=== PATIENT | female | born 1930 | race Caucasian/White ===

== ENCOUNTER → 2016-08-08 | Outpatient (CLI) | payer MEDICARE ==
[~2016-08-08] MED LIST: *MAMMOGRAM; ACIPHEX PO; ALLEGRA180 PO; BEXTRA PO; CIPRO500 PO; DYAZIDE PO; ISOVUE-M 300 61% 15ML VIAL (Q9967) As Ordered ONE; LIDOCAINE 1% SDV INJ 30 ML VIAL As Ordered ONE; LIDODERM TOPICAL; MIACALCIN NOSTRIL; MOBIC15 PO; NEURONTIN3 PO; NEXIUM40 PO; PRILOSEC40 PO; RANITIDINE PO; ROBAXIN500 PO; ULTRAM50 PO; VICO5TAB; VIOXX125 PO; VIOXX25 PO; ZADITOR TOPICAL; ZITHROM500 PO; [UNRECOGNIZED DRUG - OTHER] NASAL; methylPREDNISolone SUSP 40 MG/ML (DEPO-medrol) VIAL (J1030) As Ordered ONE
--- NOTE | 2016-08-09 08:52 | REP ---
PARTIAL LUMBAR SPINE SERIES: SINGLE VIEW. History: Lumbar epidural steroid injection for pain. 11 seconds of fluoroscopy time is reported. Findings: A single fluoroscopically obtained intraprocedural spot radiograph of the lumbar spine documents needle position and contrast injection associated with epidural injection procedure. Signed by Jerman Monroe MD 08/09/2016 10:07 A
--- NOTE | 2016-08-13 01:59 | ECWPNPC ---
PATIENT NAME: DANIEL SUH : 1930 GENDER: FEMALE VISIT DATE: 08/08/2016 DISCHARGE DATE: 08/08/16 1654 VISIT LOCKED DATE TIME: PHYSICIAN: BECKA RAMOS PHYSICIAN PAGER NO: [phone] RESOURCE: BECKA RAMOS REASON FOR APPOINTMENT 1. LESB HISTORY OF PRESENT ILLNESS HISTORY OF PRESENT ILLNESS: PAIN THE PATIENT DESCRIBES THE PAIN... FALL RISK SCREENING: SCREENING :NO FALLS IN THE PAST YEAR CURRENT MEDICATIONS TAKING FISH OIL 1000 MG TABLET 1 TAB(S) P.O. DAILY, NOTES: 08/07/161929 TAKING OCCUVITE ------ TABLET 2 TABS ORAL DAILY, NOTES: 08/07/161929 TAKING AMLODIPINE BESYLATE 2.5 MG TABLET 1 TABLET ORALLY ONCE A DAY, NOTES: 08/08/16 07 TAKING ALEVE 220 MG TABLET 1-2 TABLET NEEDED ORALLY BID, PRN, NOTES: 08/05/16 TAKING ZANTAC 150 MG TABLET 1 TAB ORALLY NEEDED, NOTES: > 2 WEEKS TAKING DYAZIDE 37.5-25 MG TABLET 1 TAB(S) ORALLY DAILY, NOTES: 08/08/16 07 TAKING EYE DROPS 0.012-0.2 % SOLUTION OPHTHALMIC , NOTES: 08/07/162199 NOT-TAKING NORTRIPTYLINE HCL 10 MG CAPSULE 1 CAPSULE ORALLY ONCE A DAY NOT-TAKING CIPROFLOXACIN-DEXAMETHASONE 0.3-0.1 % SUSPENSION 4 DROPS INTO AFFECTED EAR OTIC TWICE A DAY MEDICATION LIST REVIEWED AND RECONCILED WITH THE PATIENT PAST MEDICAL HISTORY OA HTN OSTEOPOROSIS H.H. GERD DDD LS-SPINE DIVERTICULITIS MACULAR DEGENERATION COLONOSCOPY 03/03/2014 GENERALIZED OSTEOARTHROSIS, INVOLVING MULTIPLE SITES ALLERGIC RHINITIS SPINAL STENOIS TORN ROTATOR CUFF LEFT SHOULDER ALLERGIES LISINOPRIL: ANGIOEDEMA: ALLERGY ASPIR-81: EYE SWELLING AND ITCHING: ALLERGY TOMATO: ABDOMINAL DISCOMFORT: SIDE EFFECTS SOCIAL HISTORY GENERAL: TOBACCO USE ARE YOU A:NONSMOKER LEARNING BARRIERS / SPECIAL NEEDS ORIENTED TO PLAN OF CARE: PATIENT, PAIN MANAGEMENT PATIENT, ORIENTED TO PLAN OF CARE: PATIENT, PAIN MANAGEMENT PATIENT. NEW PATIENT PAIN DIARY TODAY'S VISITNOTES FROM 0-10, WHAT LEVEL IS YOUR PAIN TODAY?0 PAIN CLINIC PFS, CLERGY, PUBLIC HEALTH REFERRALS PFS REFERRAL NEEDED?NO CLERGY REFERRAL NEEDED?NO PUBLIC HEALTH REFERRAL NEEDED?NO WAS THE PROVIDER NOTIFIED OF ANY PERTINENT INFO?NO PFS REFERRAL NEEDED?NO CLERGY REFERRAL NEEDED?NO PUBLIC HEALTH REFERRAL NEEDED?NO WAS THE PROVIDER NOTIFIED OF ANY PERTINENT INFO?NO REVIEW OF SYSTEMS CONSTITUTIONAL: ANY CHANGE IN YOUR MEDICAL CONDITION? NO . CHILLS NO . FEVER NO . INFECTION: DO YOU HAVE NEW INFECTIONS? NO . DO YOU HAVE HISTORY OF MRSA? NO . MUSCULOSKELETAL: ANY NEW PATTERNS OF PAIN OR NUMBNESS? NO . GASTROENTEROLOGY: ANY NEW CHANGE IN BOWEL CONTROL? NO . GENITOURINARY: ANY NEW CHANGE IN BLADDER CONTROL? NO . IS THERE A CHANCE YOU COULD BE ? NO . HEMATOLOGY/LYMPH: DO YOU TAKE ANY BLOOD THINNERS? (FOR EXAMPLE- COUMADIN, PLAVIX, AGGRENOX, PLATEL, PRADAXA, OR XARELTO) NO . WHEN WAS YOUR LAST DOSE? DATE: TIME: . NEUROLOGY: HAVE YOU FALLEN IN THE PAST 6 MONTHS? NO . ANY NEW EXTREMITY NUMBNESS OR WEAKNESS? NO . CARDIOLOGY: DO YOU HAVE A PACEMAKER OR DEFIBRILLATOR? NO . RESPIRATORY: HAVE YOU BEEN SICK IN THE PAST WEEK? NO . FEVER NO . FLU LIKE SYMPTOMS? NO . COUGH NO . INTEGUMENTARY: DO YOU HAVE ANY RASHES OR OPEN SORES? NO . ALLERGIC/IMMUNO: ARE YOU ALLERGIC TO SHELLFISH OR IV DYE? NO . ANY NEW ALLERGIES? NO . PSYCHIATRIC: DO YOU HAVE THOUGHTS OF HURTING YOURSELF OR SOMEONE ELSE? NO . ARE YOU ABUSED, NEGLECTED, OR IN AN UNSAFE ENVIRONMENT? NO . ENDOCRINOLOGY: ARE YOU DIABETIC? NO . OTHER: DO YOU NEED ANY PRESCRIPTIONS? NO . IF YES, PLEASE LIST: ____ . ANY NEW PROBLEMS WITH YOUR MEDICATIONS? NO . WHEN DID YOU LAST EAT? ____08/08/16 0630 . WHEN DID YOU LAST DRINK? ____08/08/16 0700 . WHAT DID YOU LAST DRINK? ____WATER . NAME OF PERSON DRIVING YOU HOME? ____PATRICIA . DO YOU HAVE ANY OTHER QUESTIONS OR CONCERNS NO . REVIEWED BY: PROVIDER: . VITAL SIGNS WT 180 LBS, HT 61 IN, BMI 34.01 INDEX, BP 120/80 MM HG, HR 76 /MIN, RR 18 /MIN, TEMP 96.0 F, OXYGEN SAT % 96, NA INITIALS TL 1453, REVIEWED BY: LAS. ASSESSMENTS INTERVERTEBRAL DISC DISORDERS WITH RADICULOPATHY, LUMBAR REGION - M51.16 (PRIMARY) PROCEDURES PRE PROCEDURE DIAGNOSIS LUMBAR DISC DISORDER WITH RADICULOPATHY POST PROCEDURE DIAGNOSIS LUMBAR DISC DISORDER WITH RADICULOPATHY PROCEDURE LUMBAR EPIDURAL STEROID INJECTION UNDER FLUOROSCOPIC GUIDANCE SURGEON DR. BECKA RAMOS SMOKING TOBACCO PACKING MACHINE HAND NONE ANESTHESIA LOCAL PRE PROCEDURE NOTE THE PATIENT HAS A HISTORY OF CHRONIC LOW BACK PAIN. I EVALUATE THE PATIENT AND REVIEWED THE CHART. I WENT OVER THE RISKS, ALTERNATIVES, AND BENEFITS ASSOCIATED WITH THIS PROCEDURE. THE PATIENT WOULD LIKE TO PROCEED AND GIVE CONSENT TO PERFORMED THE PROCEDURE. THE PATIENT DENIES UNEXPLAINABLE WEIGHT LOSS, FEVER, CHILLS, OR NEW CHANGES IN URINARY OR BOWEL CONTROL DESCRIPTION OF PROCEDURE THE PATIENT WAS BROUGHT TO THE PROCEDURE ROOM AND PLACED IN THE PRONE POSITION. THE LUMBOSACRAL AREA WAS CLEANED WITH BETADINE SOLUTION AND DRAPED ASEPTICALLY. THE PROCEDURE WAS DONE UNDER STERILE CONDITIONS. I CHECKED LATERALITY AND THE LEVEL WHERE THE PROCEDURE WAS GOING TO BE PERFORMED WITH THE PATIENT AND THE SUPPORTING STAFF AT THE MOMENT OF THE TIME OUT IN THE PROCEDURE ROOM. UNDER FLUOROSCOPIC GUIDANCE, THE TARGET POINT WAS SELECTED AT THE INTERLAMINAR LEVEL OF L2-L3. LIDOCAINE WAS USED TO NUMB THE SKIN AND THE SUBCUTANEOUS TISSUE BELOW IT. EPIDURAL TUOHY NEEDLE, 17-GAUGE, WAS ADVANCED UNDER FLUOROSCOPIC GUIDANCE AND FOLLOWING PATIENT FEEDBACK UNTIL THE EPIDURAL SPACE WAS REACHED, 7 CM DEEP INTO THE SKIN BY THE LOSS OF RESISTANCE TECHNIQUE. ISOVUE M DYE 30%, 0.25 ML, WAS INJECTED SHOWING ADEQUATE SPREAD OF THE DYE. THEN, A SOLUTION OF 3 ML OF NORMAL SALINE WITH DEPO-MEDROL 60 MG WAS INJECTED SLOWLY FOLLOWING PATIENT FEEDBACK. THERE WAS NO EVIDENCE OF BLOOD, PARESTHESIA OR CEREBROSPINAL FLUID DURING THE PROCEDURE. THE PATIENT WAS SENT TO THE RECOVERY ROOM. THE PATIENT WAS MOVING THE EXTREMITIES AND DOING WELL. THERE WAS NO COMPLICATION DURING THE PROCEDURE. FLUOROSCOPY TIME WAS 11 SECONDS POST PROCEDURE NOTE THE PATIENT WILL BE SEEN IN A FOLLOW UP IN THE NEXT FEW WEEKS. INSTRUCTIONS WERE GIVEN, QUESTIONS WERE ANSWERED, AND THE PATIENT EXPRESSED UNDERSTANDING AND AGREES WITH THE PLAN. I, MARIANA GAO, DOCUMENTED THE ABOVE INFORMATION ACTING A SCRIBE FOR DR. RAMOS. I, DR. RAMOS, HAVE REVIEWED THE ABOVE DOCUMENT, SCRIBED BY MARIANA GAO, AND I VERIFY THAT IT IS ACCURATE DIAGNOSTIC IMAGING [facility] FLUORO GUIDE SPINE INJECTION (PAIN)[id number] PROCEDURE CODES 70422 LUMBAR/SACRAL W/ IMAGING 6045F RADXPS IN END [id number] PXD FOLLOW UP 3 WEEKS ELECTRONICALLY SIGNED BY BECKA RAMOS MD ON 08/12/2016 AT 04:57 PM EST DISCLAIMER : THIS IS A VISIT SUMMARY EXTRACTED FROM THE [employer] CHART. IT IS NOT A COPY OF THE [employer] PROGRESS NOTE. MTDD
== END ==
LOC: M PAIN 14:20
PROVIDERS: ATTEND Anesthesiology
DX: G89.29 Other chronic pain (principal); M51.16 Intervertebral disc disorders with radiculopathy, lumbar region; I10 Essential (primary) hypertension; M81.0 Age-related osteoporosis without current pathological fracture; K21.9 Gastro-esophageal reflux disease without esophagitis; H35.30 Unspecified macular degeneration; M15.0 Primary generalized (osteo)arthritis; G47.30 Sleep apnea, unspecified; J30.89 Other allergic rhinitis; M48.00 Spinal stenosis, site unspecified; Z88.8 Allergy status to other drugs, medicaments and biological substances; Z91.018 Allergy to other foods; Z79.1 Long term (current) use of non-steroidal anti-inflammatories (NSAID); Z79.899 Other long term (current) drug therapy
CPT/HCPCS: 62323; J1030; Q9967

== ENCOUNTER → 2016-08-26 | Outpatient (CLI) | payer MEDICARE ==
[~2016-08-26] MED LIST changes: -ISOVUE-M 300 61% 15ML VIAL (Q9967) As Ordered ONE; -LIDOCAINE 1% SDV INJ 30 ML VIAL As Ordered ONE; -methylPREDNISolone SUSP 40 MG/ML (DEPO-medrol) VIAL (J1030) As Ordered ONE
--- NOTE | 2016-09-13 01:48 | ECWPNPC ---
PATIENT NAME: DANIEL SUH : 1930 GENDER: FEMALE VISIT DATE: 08/26/2016 DISCHARGE DATE: 08/26/16 1600 VISIT LOCKED DATE TIME: PHYSICIAN: STEPHAN ROCK PHYSICIAN PAGER NO: [phone] RESOURCE: STEPHAN ROCK REASON FOR APPOINTMENT 1. LOW BACK HISTORY OF PRESENT ILLNESS HISTORY OF PRESENT ILLNESS: HERE FOR POST PROCEDURE F/U AFTER NUMBER #2 LESI.REPORTS NO IMPROVEMENT WITH EITHER.PAIN IS WORSE IN RIGHT LEG AND ANTERIOR HOPKINS.MRI L/S SPINE SHOWING SEVERE SPINAL STENOSIS L4/5.DISCUSSED POTENTIAL RISK AND BENEFITS OF RIGHT LUMBAR TRANSFORAMINAL.PAIN IS AGGREVATED BY WALKING.RATING PAIN VAS 10/10. FALL RISK SCREENING: SCREENING :NO FALLS IN THE PAST YEAR CURRENT MEDICATIONS TAKING FISH OIL 1000 MG TABLET 1 TAB(S) P.O. DAILY, NOTES: 08/07/161929 TAKING OCCUVITE ------ TABLET 2 TABS ORAL DAILY, NOTES: 08/07/161929 TAKING AMLODIPINE BESYLATE 2.5 MG TABLET 1 TABLET ORALLY ONCE A DAY, NOTES: 08/08/16 07 TAKING ALEVE 220 MG TABLET 1-2 TABLET NEEDED ORALLY BID, PRN, NOTES: 08/05/16 TAKING ZANTAC 150 MG TABLET 1 TAB ORALLY NEEDED, NOTES: > 2 WEEKS TAKING DYAZIDE 37.5-25 MG TABLET 1 TAB(S) ORALLY DAILY, NOTES: 08/08/16 07 TAKING SYSTANE 0.4-0.3 % SOLUTION 2 DROPS OPHTHALMIC OU BID NOT-TAKING NORTRIPTYLINE HCL 10 MG CAPSULE 1 CAPSULE ORALLY ONCE A DAY NOT-TAKING CIPROFLOXACIN-DEXAMETHASONE 0.3-0.1 % SUSPENSION 4 DROPS INTO AFFECTED EAR OTIC TWICE A DAY DISCONTINUED EYE DROPS 0.012-0.2 % SOLUTION OPHTHALMIC , NOTES: 08/07/162199 MEDICATION LIST REVIEWED AND RECONCILED WITH THE PATIENT PAST MEDICAL HISTORY OA HTN OSTEOPOROSIS H.H. GERD DDD LS-SPINE DIVERTICULITIS MACULAR DEGENERATION COLONOSCOPY 03/03/2014 GENERALIZED OSTEOARTHROSIS, INVOLVING MULTIPLE SITES ALLERGIC RHINITIS SPINAL STENOIS TORN ROTATOR CUFF LEFT SHOULDER ALLERGIES LISINOPRIL: ANGIOEDEMA: ALLERGY ASPIR-81: EYE SWELLING AND ITCHING: ALLERGY TOMATO: ABDOMINAL DISCOMFORT: SIDE EFFECTS SOCIAL HISTORY GENERAL: TOBACCO USE ARE YOU A:NONSMOKER LEARNING BARRIERS / SPECIAL NEEDS ORIENTED TO PLAN OF CARE: PATIENT, PAIN MANAGEMENT PATIENT, ORIENTED TO PLAN OF CARE: PATIENT, PAIN MANAGEMENT PATIENT. NEW PATIENT PAIN DIARY TODAY'S VISITNOTES FROM 0-10, WHAT LEVEL IS YOUR PAIN TODAY?0 PAIN CLINIC PFS, CLERGY, PUBLIC HEALTH REFERRALS PFS REFERRAL NEEDED?NO CLERGY REFERRAL NEEDED?NO PUBLIC HEALTH REFERRAL NEEDED?NO WAS THE PROVIDER NOTIFIED OF ANY PERTINENT INFO?NO PFS REFERRAL NEEDED?NO CLERGY REFERRAL NEEDED?NO PUBLIC HEALTH REFERRAL NEEDED?NO WAS THE PROVIDER NOTIFIED OF ANY PERTINENT INFO?NO REVIEW OF SYSTEMS CONSTITUTIONAL: ANY CHANGE IN YOUR MEDICAL CONDITION? NO . RECENT ILLNESS DENIES . CHILLS NO . FEVER NO . WEIGHT LOSS DENIES . INFECTION: DO YOU HAVE NEW INFECTIONS? NO . DO YOU HAVE HISTORY OF MRSA? NO . MUSCULOSKELETAL: ANY NEW PATTERNS OF PAIN OR NUMBNESS? NO . GASTROENTEROLOGY: ANY NEW CHANGE IN BOWEL CONTROL? NO . GENITOURINARY: ANY NEW CHANGE IN BLADDER CONTROL? NO . IS THERE A CHANCE YOU COULD BE ? NO . HEMATOLOGY/LYMPH: DO YOU TAKE ANY BLOOD THINNERS? (FOR EXAMPLE- COUMADIN, PLAVIX, AGGRENOX, PLATEL, PRADAXA, OR XARELTO) NO . WHEN WAS YOUR LAST DOSE? DATE: TIME: . NEUROLOGY: HAVE YOU FALLEN IN THE PAST 6 MONTHS? NO . ANY NEW EXTREMITY NUMBNESS OR WEAKNESS? NO . CARDIOLOGY: DO YOU HAVE A PACEMAKER OR DEFIBRILLATOR? NO . CHEST PAIN DENIES . SHORTNESS OF BREATH DENIES . RESPIRATORY: HAVE YOU BEEN SICK IN THE PAST WEEK? NO . FEVER NO . FLU LIKE SYMPTOMS? NO . COUGH NO, DENIES . SHORTNESS OF BREATH DENIES . INTEGUMENTARY: DO YOU HAVE ANY RASHES OR OPEN SORES? NO . ALLERGIC/IMMUNO: ARE YOU ALLERGIC TO SHELLFISH OR IV DYE? NO . ANY NEW ALLERGIES? NO . PSYCHIATRIC: DO YOU HAVE THOUGHTS OF HURTING YOURSELF OR SOMEONE ELSE? NO . ARE YOU ABUSED, NEGLECTED, OR IN AN UNSAFE ENVIRONMENT? NO . ENDOCRINOLOGY: ARE YOU DIABETIC? NO . OTHER: DO YOU NEED ANY PRESCRIPTIONS? NO . IF YES, PLEASE LIST: ____ . ANY NEW PROBLEMS WITH YOUR MEDICATIONS? NO . WHEN DID YOU LAST EAT? ____ . WHEN DID YOU LAST DRINK? ____ . WHAT DID YOU LAST DRINK? ____ . NAME OF PERSON DRIVING YOU HOME? ____ . DO YOU HAVE ANY OTHER QUESTIONS OR CONCERNS YES, NO RELIEF FROM LESB DONE 08/08/16 . REVIEWED BY: PROVIDER: STEPHAN BERGER . VITAL SIGNS WT 180 LBS, HT 61 IN, BMI 34.01 INDEX, BP 153/73 MM HG, HR 79 /MIN, RR 16 /MIN, TEMP 96.7 F, OXYGEN SAT % 90%, NA INITIALS SC 14:41, REVIEWED BY: AD. EXAMINATION GENERAL EXAMINATION: LUNGS:LUNG SOUNDS ARE CLEAR. HEART:HEART RATE REGULAR. MUSCULOSKELETAL:*, MUSCLE STRENGTH TESTING 5/5 BILATERAL, PALPATION: POSITIVE FOR PAIN OVER L/S SPINE. POSITIVE FOR PAIN OVER L/S PARSPINALS. DIAGNOSTIC:MRI L/S SPINE -04-15-2015-REVIEWED.. ASSESSMENTS INTERVERTEBRAL DISC DISORDERS WITH RADICULOPATHY, LUMBAR REGION - M51.16 (PRIMARY) TREATMENT INTERVERTEBRAL DISC DISORDERS WITH RADICULOPATHY, LUMBAR REGION NOTES: WHAT IS LUMBAR EPIDURAL INJECTION? MATERIAL WAS PRINTED,LUMBAR EPIDURAL INJECTION: YOUR PROCEDURE MATERIAL WAS PRINTED. OTHERS TRANSFORAMINAL LUMB NOTES: OPTION FOR EPIDURAL INJECTIONS WERE DISCUSSED WITH THE PATIENT. FDA CONCERNS AND WARNING WERE REVIEWED INCLUDING THE RISK OF BLEEDING, RISK OF INFECTION, RISK OF INCREASED PAIN OR NEURALGIA, AND RISK OF PARALYSIS. PATIENT'S QUESTIONS WERE ANSWERED AND HE/SHE WISHES TO MOVE FORWARD WITH EPIDURAL INJECTION. PROCEDURE CODES FA211 ESTABILISHED PATIENT [facility] FACILITY CHARGE G8730 PAIN ASSESS POS TOOL F/U PLAN DOC G8427 DOC MEDS VERIFIED W/PT OR RE FOLLOW UP 2WK POST (REASON: RIGHT LUMBAR TRANSFORAMINAL) ELECTRONICALLY SIGNED BY CELINE HOFFMAN ON 09/12/2016 AT 03:57 PM EST DISCLAIMER : THIS IS A VISIT SUMMARY EXTRACTED FROM THE [employer] CHART. IT IS NOT A COPY OF THE [employer] PROGRESS NOTE. KRISTOFER
== END ==
LOC: M PAIN 14:40
PROVIDERS: ATTEND Nurse Practitioner Family
DX: Z09 Encounter for follow-up examination after completed treatment for conditions other than malignant neoplasm (principal); G89.29 Other chronic pain; M51.16 Intervertebral disc disorders with radiculopathy, lumbar region; M51.36 Other intervertebral disc degeneration, lumbar region; M15.0 Primary generalized (osteo)arthritis; H35.30 Unspecified macular degeneration; I10 Essential (primary) hypertension; M85.80 Other specified disorders of bone density and structure, unspecified site; K21.9 Gastro-esophageal reflux disease without esophagitis; M48.00 Spinal stenosis, site unspecified; G47.30 Sleep apnea, unspecified; J30.89 Other allergic rhinitis; Z88.6 Allergy status to analgesic agent; Z91.018 Allergy to other foods; Z88.8 Allergy status to other drugs, medicaments and biological substances; Z79.1 Long term (current) use of non-steroidal anti-inflammatories (NSAID); Z79.899 Other long term (current) drug therapy

== ENCOUNTER → 2016-10-05 | Outpatient (CLI) | payer MEDICARE ==
--- NOTE | 2016-10-12 01:58 | ECWPNPC ---
PATIENT NAME: DANIEL SUH : 1930 GENDER: FEMALE VISIT DATE: 10/05/2016 DISCHARGE DATE: 10/05/16 1223 VISIT LOCKED DATE TIME: PHYSICIAN: BECKA RAMOS PHYSICIAN PAGER NO: [phone] RESOURCE: BECKA RAMOS REASON FOR APPOINTMENT 1. LOW BACK PAIN HISTORY OF PRESENT ILLNESS HISTORY OF PRESENT ILLNESS: PAIN THE PATIENT DESCRIBES THE PAIN... 86 YEAR OLD FEMALE PATIENT WITH HISTORY OF CHRONIC LOW BACK PAIN. PATIENT DESCRIBES THE PAIN ACHING, BURNING, TENDER, THROBBING, AND SORE WITH THE PAIN COMING AND GOING AND A PAIN SCORE OF 10/10. PATIENT RECEIVED A LUMBAR EPIDURAL ON 09/14/16 AND STATES THAT SHE DID NOT RECEIVE ANY RELIEF FROM THE INJECTION AT ALL. PATIENT IS CURRENTLY ONLY USING ALEVE TO AID IN PAIN RELIEF. MRS. SUH REPORTS PAIN INCREASING WITH ANY TYPE OF ACTIVITY INCLUDING SITTING, STANDING, WALKING, AND OVERWORKING HER BACK. PATIENT STATES THAT RESTING AND HEAT HELPS TO AID IN PAIN RELIEF. PATIENT DENIES UNEXPLAINABLE WEIGHT LOSS, FEVER, CHILLS, NEW CHANGES ON HER URINARY OR BOWEL CONTROL. FALL RISK SCREENING: SCREENING :NO FALLS IN THE PAST YEAR CURRENT MEDICATIONS TAKING FISH OIL 1000 MG TABLET 1 TAB(S) P.O. DAILY, NOTES: 1230 09-13-16 TAKING OCCUVITE ------ TABLET 2 TABS ORAL DAILY, NOTES: 20990 TAKING AMLODIPINE BESYLATE 2.5 MG TABLET 1 TABLET ORALLY ONCE A DAY, NOTES: 09-13-16 1230 TAKING ALEVE 220 MG TABLET 1-2 TABLET NEEDED ORALLY BID, PRN, NOTES: 2099 TAKING ZANTAC 150 MG TABLET 1 TAB ORALLY NEEDED, NOTES: 09-13-162099 TAKING DYAZIDE 37.5-25 MG TABLET 1 TAB(S) ORALLY DAILY, NOTES: 09-13-16 2100 TAKING SYSTANE 0.4-0.3 % SOLUTION 2 DROPS OPHTHALMIC OU BID, NOTES: 09-14-16 0600 TAKING CENTRUM SILVER - TABLET ORALLY TAKING AMOXICILLIN 875 MG TABLET 1 TABLET ORALLY EVERY 12 HRS NOT-TAKING NORTRIPTYLINE HCL 10 MG CAPSULE 1 CAPSULE ORALLY ONCE A DAY NOT-TAKING CIPROFLOXACIN-DEXAMETHASONE 0.3-0.1 % SUSPENSION 4 DROPS INTO AFFECTED EAR OTIC TWICE A DAY MEDICATION LIST REVIEWED AND RECONCILED WITH THE PATIENT PAST MEDICAL HISTORY OA HTN OSTEOPOROSIS H.H. GERD DDD LS-SPINE DIVERTICULITIS MACULAR DEGENERATION COLONOSCOPY 03/03/2014 GENERALIZED OSTEOARTHROSIS, INVOLVING MULTIPLE SITES ALLERGIC RHINITIS SPINAL STENOIS TORN ROTATOR CUFF LEFT SHOULDER ALLERGIES LISINOPRIL: ANGIOEDEMA: ALLERGY ASPIR-81: EYE SWELLING AND ITCHING: ALLERGY TOMATO: ABDOMINAL DISCOMFORT: SIDE EFFECTS SURGICAL HISTORY NO SURGICAL HISTORY DOCUMENTED. FAMILY HISTORY NO FAMILY HISTORY DOCUMENTED. SOCIAL HISTORY GENERAL: TOBACCO USE ARE YOU A:NONSMOKER LEARNING BARRIERS / SPECIAL NEEDS ORIENTED TO PLAN OF CARE: PATIENT, PAIN MANAGEMENT PATIENT, ORIENTED TO PLAN OF CARE: PATIENT, PAIN MANAGEMENT PATIENT. NEW PATIENT PAIN DIARY TODAY'S VISITNOTES FROM 0-10, WHAT LEVEL IS YOUR PAIN TODAY?0 PAIN CLINIC PFS, CLERGY, PUBLIC HEALTH REFERRALS PFS REFERRAL NEEDED?NO CLERGY REFERRAL NEEDED?NO PUBLIC HEALTH REFERRAL NEEDED?NO WAS THE PROVIDER NOTIFIED OF ANY PERTINENT INFO?NO PFS REFERRAL NEEDED?NO CLERGY REFERRAL NEEDED?NO PUBLIC HEALTH REFERRAL NEEDED?NO WAS THE PROVIDER NOTIFIED OF ANY PERTINENT INFO?NO HOSPITALIZATION/MAJOR DIAGNOSTIC PROCEDURE SURGERIES REVIEW OF SYSTEMS CONSTITUTIONAL: ANY CHANGE IN YOUR MEDICAL CONDITION? YES, HAS HAD A SINUS INFECTION . CHILLS NO . FEVER NO . INFECTION: DO YOU HAVE NEW INFECTIONS? NO . DO YOU HAVE HISTORY OF MRSA? NO . MUSCULOSKELETAL: ANY NEW PATTERNS OF PAIN OR NUMBNESS? NO . GASTROENTEROLOGY: ANY NEW CHANGE IN BOWEL CONTROL? NO . GENITOURINARY: ANY NEW CHANGE IN BLADDER CONTROL? NO . IS THERE A CHANCE YOU COULD BE ? NO . HEMATOLOGY/LYMPH: DO YOU TAKE ANY BLOOD THINNERS? (FOR EXAMPLE- COUMADIN, PLAVIX, AGGRENOX, PLATEL, PRADAXA, OR XARELTO) NO . WHEN WAS YOUR LAST DOSE? DATE: TIME: . NEUROLOGY: HAVE YOU FALLEN IN THE PAST 6 MONTHS? NO . ANY NEW EXTREMITY NUMBNESS OR WEAKNESS? NO . CARDIOLOGY: DO YOU HAVE A PACEMAKER OR DEFIBRILLATOR? NO . RESPIRATORY: HAVE YOU BEEN SICK IN THE PAST WEEK? NO . FEVER NO . FLU LIKE SYMPTOMS? NO . COUGH NO . INTEGUMENTARY: DO YOU HAVE ANY RASHES OR OPEN SORES? NO . ALLERGIC/IMMUNO: ARE YOU ALLERGIC TO SHELLFISH OR IV DYE? NO . ANY NEW ALLERGIES? NO . PSYCHIATRIC: DO YOU HAVE THOUGHTS OF HURTING YOURSELF OR SOMEONE ELSE? NO . ARE YOU ABUSED, NEGLECTED, OR IN AN UNSAFE ENVIRONMENT? NO . ENDOCRINOLOGY: ARE YOU DIABETIC? NO . OTHER: DO YOU NEED ANY PRESCRIPTIONS? NO . IF YES, PLEASE LIST: ____ . ANY NEW PROBLEMS WITH YOUR MEDICATIONS? NO . WHEN DID YOU LAST EAT? ____ . WHEN DID YOU LAST DRINK? ____ . WHAT DID YOU LAST DRINK? ____ . NAME OF PERSON DRIVING YOU HOME? ____ . DO YOU HAVE ANY OTHER QUESTIONS OR CONCERNS NO . REVIEWED BY: PROVIDER: BECKA RAMOS MD . VITAL SIGNS WT 180 LBS, HT 61 IN, BMI 34.01 INDEX, BP 130/67 MM HG, HR 77 /MIN, RR 16 /MIN, TEMP 97.4 F, OXYGEN SAT % 95, NA INITIALS TL 1105, REVIEWED BY: VD. EXAMINATION : PATIENT IS ALERT O X 3 AND COOPERATIVE. TENDERNESS IN THE LOWER BACK AND PARASPINAL MUSCLE GROUP. RIGHT LEG IS WEAKER THEN THE LEFT AT FLEXION. PATIENT WALKS WITH A LIMP FROM THE RIGHT SIDE. MRI DONE ON 04/15/15 SHOWS STENOSIS, FACET HYPERTROPHY, AND DISC BULGES AT L1-L2 THROUGH L5-S1. 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 SUH'S PAIN MANAGEMENT CASE. AT THIS TIME THE PATIENT WILL CONTINUE USING ALEVE FOR PAIN MANAGEMENT. WE DISCUSSED MOVING FORWARD WITH A DIFFERENT INJECTION DUE TO THE LUMBAR EPIDURAL NOT GIVING THE PATIENT ANY RELIEF. WE DISCUSSED IN DETAIL THE TRANSFORAMINAL INJECTION AND AT THIS TIME THE PATIENT WOULD LIKE TO PROCEED. WE DISCUSSED THE RISKS, BENENFITS, AND ALTNERATIVES TO THE INJECTION AND THE PATIENT WOULD LIKE TO PROCEED AT THIS TIME. INSTRUCTIONS WERE GIVEN, QUESTIONS WERE ANSWERED, PATIENT REPORTS UNDERSTANDING AND AGREES WITH THE PLAN. I, MARIANA GAO, DOCUMENTED THE ABOVE INFORMATION ACTING A SCRIBE FOR DR. RAMOS. I HAVE REVIEWED THE ABOVE DOCUMENT, WRITTEN BY MARIANA SUE AND I VERIFY THAT IT IS ACCURATE. PROCEDURE CODES FA211 ESTABILISHED PATIENT [facility] FACILITY CHARGE Z1380 DOC MEDS VERIFIED W/PT OR RE O5450 PAIN ASSESS POS TOOL F/U PLAN DOC DISPOSITION & COMMUNICATION FOLLOW UP TRANSFORAMINAL AFTER APPROVAL ELECTRONICALLY SIGNED BY BECKA RAMOS MD ON 10/09/2016 AT 10:57 AM EDT DISCLAIMER : THIS IS A VISIT SUMMARY EXTRACTED FROM THE [employer] CHART. IT IS NOT A COPY OF THE [employer] PROGRESS NOTE. MTDD
== END ==
LOC: M PAIN 10:40
PROVIDERS: ATTEND Anesthesiology
DX: Z09 Encounter for follow-up examination after completed treatment for conditions other than malignant neoplasm (principal); G89.29 Other chronic pain; M51.16 Intervertebral disc disorders with radiculopathy, lumbar region; M51.17 Intervertebral disc disorders with radiculopathy, lumbosacral region; J32.9 Chronic sinusitis, unspecified; I10 Essential (primary) hypertension; M19.90 Unspecified osteoarthritis, unspecified site; M48.00 Spinal stenosis, site unspecified; J30.89 Other allergic rhinitis; H35.30 Unspecified macular degeneration; M81.0 Age-related osteoporosis without current pathological fracture; G47.30 Sleep apnea, unspecified; Z88.8 Allergy status to other drugs, medicaments and biological substances; Z88.6 Allergy status to analgesic agent; Z91.018 Allergy to other foods; Z79.1 Long term (current) use of non-steroidal anti-inflammatories (NSAID); Z79.899 Other long term (current) drug therapy; Z79.2 Long term (current) use of antibiotics

== ENCOUNTER → 2016-10-21 | Outpatient (REF) | payer MEDICARE ==
[2016-10-21 18:16] LABS: ANION GAP 6 MEQ/L (8-16); BLOOD UREA NITROGEN 20 MG/DL (7-18); CARBON DIOXIDE LEVEL 33 MEQ/L (21-32); CHLORIDE LEVEL 103 MEQ/L (98-107); CREATININE FOR GFR 0.75 MG/DL (0.55-1.02); GLOMERULAR FILTRATION RATE > 60.0 (>32); GLUCOSE, FASTING 91 MG/DL (83-110); POTASSIUM SERUM 3.8 MEQ/L (3.5-5.1); SODIUM LEVEL 142 MEQ/L (136-145)
[2016-10-21 19:01] LABS: BASO % 0.4 % (0.0-1.0); EOS # 0.2 K/mm3 (0.0-0.50); EOS % 3.4 % (0.0-3.0); LARGE UNSTAINED CELL # 0.1 K/mm3 (0.0-0.4); LARGE UNSTAINED CELL % 1.5 % (0.0-4.0); LYMPH # 1.3 K/mm3 (1.5-4.5); LYMPH % 21.4 % (24.0-44.0); MEAN CORPUSCULAR HEMOGLOBIN 27.4 pg (27.0-33.0); MEAN CORPUSCULAR HGB CONC 32.4 g/dl (32.0-36.5); MEAN CORPUSCULAR VOLUME 84.4 fl (80.0-96.0); MONO # 0.4 K/mm3 (0.0-0.8); MONO % 6.7 % (0.0-5.0); NEUTROPHILS % 66.6 % (36.0-66.0); PLATELET COUNT, AUTOMATED 245 k/mm3 (150-450)
== END ==
LOC: M SFHCCLAY 12:17
PROVIDERS: ATTEND Family Medicine
DX: L08.9 Local infection of the skin and subcutaneous tissue, unspecified (principal); I10 Essential (primary) hypertension
CPT/HCPCS: 80048; 85025; 87070; 87077; 87186; G0463

== ENCOUNTER → 2016-10-27 | Outpatient (CLI) | payer MEDICARE ==
[~2016-10-27] MED LIST changes: +BUPIVACAINE HCL 0.25% 30 ML VIAL As Ordered ONE; +ISOVUE-M 300 61% 15ML VIAL (Q9967) As Ordered ONE; +LIDOCAINE 1% SDV INJ 30 ML VIAL As Ordered ONE; +MIDAZOLAM INJ 2 MG/2 ML VIAL (J2250) As Ordered ONE; +dexameTHASONE 10 MG/1 ML VIAL PRES.FREE (J1100) As Ordered ONE; +fentaNYL 100 MCG/2 ML INJECTION (J3010) As Ordered ONE
--- NOTE | 2016-10-27 14:54 | REP ---
FLUOROSCOPIC GUIDANCE FOR TRANSFORAMINAL INJECTION LUMBAR SPINE: 10/27/2016 CLINICAL HISTORY: Back pain. FINDINGS: Three fluoroscopic spot images and then cine fluoroscopy images for transforaminal injections of L3 and L4 on the right side of the lumbar spine. Fluoroscopy time: 1 minute. Signed by Marcos Richard MD 10/27/2016 05:52 P
--- NOTE | 2016-11-03 01:08 | ECWPNPC ---
PATIENT NAME: DANIEL SUH : 1930 GENDER: FEMALE VISIT DATE: 10/27/2016 DISCHARGE DATE: 10/27/16 1316 VISIT LOCKED DATE TIME: PHYSICIAN: BECKA RAMOS PHYSICIAN PAGER NO: [phone] RESOURCE: BECKA RAMOS REASON FOR APPOINTMENT 1. TRANSFORAMINAL HISTORY OF PRESENT ILLNESS HISTORY OF PRESENT ILLNESS: PAIN THE PATIENT DESCRIBES THE PAIN... FALL RISK SCREENING: SCREENING :NO FALLS IN THE PAST YEAR CURRENT MEDICATIONS TAKING CEPHALEXIN 500 MG CAPSULE 1 CAPSULE ORALLY TID, NOTES: 10/26 12 NOON TAKING DOXYCYCLINE HYCLATE 100 MG TABLET 1 TABLET ORALLY EVERY 12 HRS, NOTES: MONDAY TAKING FISH OIL 1000 MG TABLET 1 TAB(S) P.O. DAILY, NOTES: 10/26 4PM TAKING OCCUVITE ------ TABLET 2 TABS ORAL DAILY, NOTES: 10/26 4PM TAKING AMLODIPINE BESYLATE 2.5 MG TABLET 1 TABLET ORALLY ONCE A DAY, NOTES: 10/26 9AM TAKING ALEVE 220 MG TABLET 1-2 TABLET NEEDED ORALLY BID, PRN, NOTES: 1 WEEK TAKING ZANTAC 150 MG TABLET 1 TAB ORALLY NEEDED, NOTES: 2 WEEKS AGO TAKING DYAZIDE 37.5-25 MG TABLET 1 TAB(S) ORALLY DAILY, NOTES: 10/26 12 NOON TAKING SYSTANE 0.4-0.3 % SOLUTION 2 DROPS OPHTHALMIC OU BID, NOTES: 10/27 7AM TAKING CENTRUM SILVER - TABLET ORALLY , NOTES: 1 WEEK NOT-TAKING NORTRIPTYLINE HCL 10 MG CAPSULE 1 CAPSULE ORALLY ONCE A DAY NOT-TAKING CIPROFLOXACIN-DEXAMETHASONE 0.3-0.1 % SUSPENSION 4 DROPS INTO AFFECTED EAR OTIC TWICE A DAY MEDICATION LIST REVIEWED AND RECONCILED WITH THE PATIENT PAST MEDICAL HISTORY OA HTN OSTEOPOROSIS H.H. GERD DDD LS-SPINE DIVERTICULITIS MACULAR DEGENERATION COLONOSCOPY 03/03/2014 GENERALIZED OSTEOARTHROSIS, INVOLVING MULTIPLE SITES ALLERGIC RHINITIS SPINAL STENOIS TORN ROTATOR CUFF LEFT SHOULDER ALLERGIES LISINOPRIL: ANGIOEDEMA: ALLERGY ASPIR-81: EYE SWELLING AND ITCHING: ALLERGY TOMATO: ABDOMINAL DISCOMFORT: SIDE EFFECTS SOCIAL HISTORY GENERAL: TOBACCO USE ARE YOU A:FORMER SMOKER AGE 32 HOW LONG HAS IT BEEN SINCE YOU LAST SMOKED?> 10 YEARS ADDITIONAL FINDINGS: TOBACCO USER NONE ADDITIONAL FINDINGS: TOBACCO NON-USER NO VAPORNO E-CIGARETTENO BMI CARE GOAL FOLLOW-UP ABOVE NORMAL BMI FOLLOW-UPDIETARY MANAGEMENT EDUCATION, GUIDANCE, AND COUNSELING ALCOHOL SCREENING DID YOU HAVE A DRINK CONTAINING ALCOHOL IN THE PAST YEAR?YES HOW OFTEN DID YOU HAVE SIX OR MORE DRINKS ON ONE OCCASION IN THE PAST YEAR?NEVER (0 POINTS) HOW MANY DRINKS DID YOU HAVE ON A TYPICAL DAY WHEN YOU WERE DRINKING IN THE PAST YEAR?1 OR 2 (0 POINTS) HOW OFTEN DID YOU HAVE A DRINK CONTAINING ALCOHOL IN THE PAST YEAR?MONTHLY OR LESS (1 POINT) POINTS1 INTERPRETATIONNEGATIVE RECREATIONAL DRUG USE DRUG USE?NO CAFFEINE CAFFEINE USE?YES HOW OFTEN AND HOW MUCH? 1-2 CUPS DAILY HIV / HEP-C SCREENING HIV TEST OFFERED TO PATIENT:NO NOT HEP-C TEST OFFERED TO PATIENT:NO BORN 1930 DIET: REGULAR. EXERCISE: NO REGULAR EXERCISE. MARITAL STATUS: . LANGUAGE CUBAN. LEARNING BARRIERS / SPECIAL NEEDS CHANGE FROM LAST VISIT?NO BARRIERS TO LEARNING?NO HEARING IMPAIRED?NO VISION IMPAIRED?YES COGNITIVELY IMPAIRED?NO :CORRECTIVE LENSES READINESS TO LEARN?YES LEARNING PREFERENCES?NO LEARNING CAPABILITIES PRESENT?YES EMOTIONAL BARRIERS?NO SPECIAL DEVICES?NO REAL TIME TRADER NEEDED?NO NEW PATIENT PAIN DIARY TODAY'S VISITNOTES FROM 0-10, WHAT LEVEL IS YOUR PAIN TODAY?0 PAIN CLINIC PFS, CLERGY, PUBLIC HEALTH REFERRALS PFS REFERRAL NEEDED?NO PFS REFERRAL NEEDED?NO CLERGY REFERRAL NEEDED?NO CLERGY REFERRAL NEEDED?NO PUBLIC HEALTH REFERRAL NEEDED?NO PUBLIC HEALTH REFERRAL NEEDED?NO WAS THE PROVIDER NOTIFIED OF ANY PERTINENT INFO?NO WAS THE PROVIDER NOTIFIED OF ANY PERTINENT INFO?NO HOSPITALIZATION/MAJOR DIAGNOSTIC PROCEDURE SURGERIES REVIEW OF SYSTEMS CONSTITUTIONAL: ANY CHANGE IN YOUR MEDICAL CONDITION? NO . CHILLS NO . FEVER NO . INFECTION: DO YOU HAVE NEW INFECTIONS? NO . DO YOU HAVE HISTORY OF MRSA? NO . MUSCULOSKELETAL: ANY NEW PATTERNS OF PAIN OR NUMBNESS? NO . GASTROENTEROLOGY: ANY NEW CHANGE IN BOWEL CONTROL? NO . GENITOURINARY: ANY NEW CHANGE IN BLADDER CONTROL? NO . IS THERE A CHANCE YOU COULD BE ? NO . HEMATOLOGY/LYMPH: DO YOU TAKE ANY BLOOD THINNERS? (FOR EXAMPLE- COUMADIN, PLAVIX, AGGRENOX, PLATEL, PRADAXA, OR XARELTO) NO . WHEN WAS YOUR LAST DOSE? DATE: TIME: . NEUROLOGY: HAVE YOU FALLEN IN THE PAST 6 MONTHS? NO . ANY NEW EXTREMITY NUMBNESS OR WEAKNESS? NO . CARDIOLOGY: DO YOU HAVE A PACEMAKER OR DEFIBRILLATOR? NO . RESPIRATORY: HAVE YOU BEEN SICK IN THE PAST WEEK? NO . FEVER NO . FLU LIKE SYMPTOMS? NO . COUGH NO . INTEGUMENTARY: DO YOU HAVE ANY RASHES OR OPEN SORES? NO . ALLERGIC/IMMUNO: ARE YOU ALLERGIC TO SHELLFISH OR IV DYE? NO . ANY NEW ALLERGIES? NO . PSYCHIATRIC: DO YOU HAVE THOUGHTS OF HURTING YOURSELF OR SOMEONE ELSE? NO . ARE YOU ABUSED, NEGLECTED, OR IN AN UNSAFE ENVIRONMENT? NO . ENDOCRINOLOGY: ARE YOU DIABETIC? NO . OTHER: DO YOU NEED ANY PRESCRIPTIONS? NO . IF YES, PLEASE LIST: ____ . ANY NEW PROBLEMS WITH YOUR MEDICATIONS? NO . WHEN DID YOU LAST EAT? 10/26 6PM . WHEN DID YOU LAST DRINK? 10/26PM . WHAT DID YOU LAST DRINK? WATER AND MILK . NAME OF PERSON DRIVING YOU HOME? ANGELIQUE SUH . DO YOU HAVE ANY OTHER QUESTIONS OR CONCERNS PT HAD CYST REMOVED AND IS CURRENT ON ANTIBIOTICS FOR CYST. PT STATES THAT SHE DID NOT TAKE ANTIBIOTIC LAST NIGHT. DADA . REVIEWED BY: PROVIDER: . VITAL SIGNS WT 187.0 LBS, HT 5'1", BMI 35.33 INDEX, BP 169/77 MM HG, HR 80 /MIN, RR 18 /MIN, TEMP 97.8 F, OXYGEN SAT % 97%, SAFE IN ENV? (Y/N) Y, NA INITIALS TL 1049, REVIEWED BY: DADA. 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 I EVALUATE THE PATIENT AND REVIEWED THE CHART. I WENT OVER THE RISKS, ALTERNATIVES, AND BENEFITS ASSOCIATED WITH THIS PROCEDURE. PATIENT WANTS TO HAVE IV SEDATION DUE TO THE ANXIETY, PAIN AND DISCOMFORT THIS PROCEDURE WILL CAUSE TO HER. THE PATIENT WOULD LIKE TO PROCEED AND GIVE CONSENT TO PERFORMED THE PROCEDURE WITH IV SEDATION. THE PATIENT DENIES UNEXPLAINABLE WEIGHT LOSS, FEVER, CHILLS, OR CHANGES IN URINARY OR BOWEL CONTROL DESCRIPTION OF PROCEDURE THE PATIENT WAS BROUGHT TO THE PROCEDURE ROOM AND PLACED IN THE PRONE POSITION. THE LUMBOSACRAL AREA WAS CLEANED WITH BETADINE SOLUTION AND DRAPED ASEPTICALLY. THE PROCEDURE WAS DONE UNDER STERILE CONDITIONS. I CHECKED LATERALITY AND THE LEVEL WHERE THE PROCEDURE WAS GOING TO BE PERFORMED WITH THE PATIENT AND THE SUPPORTING STAFF AT THE MOMENT OF THE TIME OUT IN THE PROCEDURE ROOM. UNDER FLUOROSCOPIC GUIDANCE, TARGETS WERE SELECTED AT THE RIGHT TRANSFORAMINAL OPENING OF L3 AND L4. TARGET POINT WAS SELECTED AFTER LATERAL ROTATION AND TILT OF THE MAGNIFIER OF THE C-ARM. LIDOCAINE 0.5% WAS USED TO NUMB THE SKIN AND THE SUBCUTANEOUS TISSUE BELOW IT. AN EPIMED INTRODUCER 18-GAUGE WAS ADVANCED UNTIL WE WENT CLOSE TO THE SELECTED TRANSFORAMINAL OPENINGS. AFTER PROPER POSITION OF THE NEEDLES WAS ACHIEVED, A 22-GAUGE EPIMED NEEDLE WAS PLACED INSIDE OF THE INTRODUCER AND ADVANCED TO THE TRANSFORAMINAL OPENING OF THE SELECTED SITES. WHEN PROPER POSITION OF THE NEEDLE WAS ACHIEVED, ISOVUE M DYE 30%, 0.25 ML, WAS INJECTED SHOWING ADEQUATE SPREAD OF THE DYE. THIS WAS DONE UNDER DIGITAL SUBTRACTION AND ANGIOGRAPHY. THERE WAS NO VASCULAR UPDATE. THEN, A SOLUTION OF 2 ML OF BUPIVACAINE 0.25% AND DEXAMETHASONE 10 MG WAS INJECTED AT EACH SITE. PATIENT RECEIVED VERSED 1 MG AND FENTANYL 25 MCG IV DIVIDED DOSES. FACE TO FACE TIME WAS 20 MINUTES. THERE WAS NO EVIDENCE OF BLOOD, PARESTHESIA OR CEREBROSPINAL FLUID DURING THE PROCEDURE. THE PATIENT WAS SENT TO THE RECOVERY ROOM. THE PATIENT WAS MOVING THE EXTREMITIES AND DOING WELL. THERE WAS NO COMPLICATION DURING THE PROCEDURE. FLUOROSCOPY TIME WAS 1 MINUTE. POST PROCEDURE NOTE THE PROCEDURE DONE WAS DISCUSSED WITH THE PATIENT. THE PATIENT WILL BE SEEN IN A FOLLOW UP IN THE NEXT FEW WEEKS. INSTRUCTIONS WERE GIVEN, QUESTIONS WERE ANSWERED, AND THE PATIENT EXPRESSED UNDERSTANDING AND AGREES WITH THE PLAN. I, HELADIO BELTRAN, DOCUMENTED THE ABOVE INFORMATION ACTING A SCRIBE FOR DR. RAMOS. I HAVE REVIEWED THE ABOVE DOCUMENT, WRITTEN BY HELADIO BELTRAN SCRIBE AND I VERIFY THAT IT IS ACCURATE DIAGNOSTIC IMAGING [facility] FLUORO GUIDE SPINE INJECTION (PAIN)[id number] PROCEDURE CODES 07039 INJ FORAMEN EPIDURAL L/S 06489 INJ FORAMEN EPIDURAL ADD-ON 6045F RADXPS IN END [id number] PXD 26234 MOD SED SAME PHYS/QHP 5/>YRS DISPOSITION & COMMUNICATION FOLLOW UP 3 WEEKS ELECTRONICALLY SIGNED BY BECKA RAMOS MD ON 11/02/2016 AT 11:03 AM EDT DISCLAIMER : THIS IS A VISIT SUMMARY EXTRACTED FROM THE [employer] CHART. IT IS NOT A COPY OF THE [employer] PROGRESS NOTE. MTDD
== END | disposition home or self-care (01) ==
LOC: M PAIN 10:20
PROVIDERS: ATTEND Anesthesiology
DX: G89.29 Other chronic pain (principal); M51.16 Intervertebral disc disorders with radiculopathy, lumbar region; M48.06 Spinal stenosis, lumbar region; I10 Essential (primary) hypertension; K21.9 Gastro-esophageal reflux disease without esophagitis; M81.0 Age-related osteoporosis without current pathological fracture; Z79.899 Other long term (current) drug therapy; Z87.891 Personal history of nicotine dependence; Z88.8 Allergy status to other drugs, medicaments and biological substances; Z91.018 Allergy to other foods
CPT/HCPCS: 64483; 64484; 99152; J1100; J2250; J3010; Q9967

== ENCOUNTER → 2016-11-22 | Outpatient (CLI) | payer MEDICARE ==
[~2016-11-22] MED LIST changes: -BUPIVACAINE HCL 0.25% 30 ML VIAL As Ordered ONE; -ISOVUE-M 300 61% 15ML VIAL (Q9967) As Ordered ONE; -LIDOCAINE 1% SDV INJ 30 ML VIAL As Ordered ONE; -MIDAZOLAM INJ 2 MG/2 ML VIAL (J2250) As Ordered ONE; -dexameTHASONE 10 MG/1 ML VIAL PRES.FREE (J1100) As Ordered ONE; -fentaNYL 100 MCG/2 ML INJECTION (J3010) As Ordered ONE
--- NOTE | 2016-12-02 00:06 | ECWPNPC ---
PATIENT NAME: DANIEL SUH : 1930 GENDER: FEMALE VISIT DATE: 11/22/2016 DISCHARGE DATE: 11/22/16 1211 VISIT LOCKED DATE TIME: PHYSICIAN: STEPHAN ROCK PHYSICIAN PAGER NO: [phone] RESOURCE: STEPHAN ROCK REASON FOR APPOINTMENT 1. POST PROCEDURE HISTORY OF PRESENT ILLNESS HISTORY OF PRESENT ILLNESS: HERE FORPOST PROCEDURE FOLLOW UP.HAD RIGHT L3/4 TRANSFORAMINAL ON 10-27-16 WITHOUT IMPROVEMENT AND SOME AGGREVATION IN PAIN.HAS TRIALED TWO LESI WITHOUT IMPROVEMENT.RATING LOW BACK AND RIGHT LEG PAIN 10/10.DESCRIBES PAIN INTERMITTENT SHARP AND STABBING. PAIN THE PATIENT DESCRIBES THE PAIN... FALL RISK SCREENING: SCREENING :NO FALLS IN THE PAST YEAR CURRENT MEDICATIONS TAKING FISH OIL 1000 MG TABLET 1 TAB(S) P.O. DAILY TAKING OCCUVITE ------ TABLET 2 TABS ORAL DAILY TAKING AMLODIPINE BESYLATE 2.5 MG TABLET 1 TABLET ORALLY ONCE A DAY TAKING ALEVE 220 MG TABLET 1-2 TABLET NEEDED ORALLY BID, PRN TAKING ZANTAC 150 MG TABLET 1 TAB ORALLY NEEDED TAKING DYAZIDE 37.5-25 MG TABLET 1 TAB(S) ORALLY DAILY TAKING SYSTANE 0.4-0.3 % SOLUTION 2 DROPS OPHTHALMIC OU BID TAKING CENTRUM SILVER - TABLET ORALLY NOT-TAKING CEPHALEXIN 500 MG CAPSULE 1 CAPSULE ORALLY TID NOT-TAKING DOXYCYCLINE HYCLATE 100 MG TABLET 1 TABLET ORALLY EVERY 12 HRS NOT-TAKING NORTRIPTYLINE HCL 10 MG CAPSULE 1 CAPSULE ORALLY ONCE A DAY NOT-TAKING CIPROFLOXACIN-DEXAMETHASONE 0.3-0.1 % SUSPENSION 4 DROPS INTO AFFECTED EAR OTIC TWICE A DAY MEDICATION LIST REVIEWED AND RECONCILED WITH THE PATIENT PAST MEDICAL HISTORY OA HTN OSTEOPOROSIS H.H. GERD DDD LS-SPINE DIVERTICULITIS MACULAR DEGENERATION COLONOSCOPY 03/03/2014 GENERALIZED OSTEOARTHROSIS, INVOLVING MULTIPLE SITES ALLERGIC RHINITIS SPINAL STENOIS TORN ROTATOR CUFF LEFT SHOULDER ALLERGIES LISINOPRIL: ANGIOEDEMA: ALLERGY ASPIR-81: EYE SWELLING AND ITCHING: ALLERGY TOMATO: ABDOMINAL DISCOMFORT: SIDE EFFECTS SOCIAL HISTORY GENERAL: PAIN CLINIC PFS, CLERGY, PUBLIC HEALTH REFERRALS CLERGY REFERRAL NEEDED?NO WAS THE PROVIDER NOTIFIED OF ANY PERTINENT INFO?NO PFS REFERRAL NEEDED?NO PUBLIC HEALTH REFERRAL NEEDED?NO PATIENT: ____. REVIEW OF SYSTEMS CONSTITUTIONAL: ANY CHANGE IN YOUR MEDICAL CONDITION? NO . CHILLS NO . FEVER NO . INFECTION: DO YOU HAVE NEW INFECTIONS? NO . DO YOU HAVE HISTORY OF MRSA? NO . MUSCULOSKELETAL: ANY NEW PATTERNS OF PAIN OR NUMBNESS? YES, PAIN IS WORSE LIKE ELECTRIC SHOCKS . GASTROENTEROLOGY: ANY NEW CHANGE IN BOWEL CONTROL? NO . GENITOURINARY: ANY NEW CHANGE IN BLADDER CONTROL? NO . IS THERE A CHANCE YOU COULD BE ? NO . HEMATOLOGY/LYMPH: DO YOU TAKE ANY BLOOD THINNERS? (FOR EXAMPLE- COUMADIN, PLAVIX, AGGRENOX, PLATEL, PRADAXA, OR XARELTO) NO . WHEN WAS YOUR LAST DOSE? DATE: TIME: . NEUROLOGY: HAVE YOU FALLEN IN THE PAST 6 MONTHS? NO . ANY NEW EXTREMITY NUMBNESS OR WEAKNESS? NO . CARDIOLOGY: DO YOU HAVE A PACEMAKER OR DEFIBRILLATOR? NO . RESPIRATORY: HAVE YOU BEEN SICK IN THE PAST WEEK? NO . FEVER NO . FLU LIKE SYMPTOMS? NO . COUGH NO . INTEGUMENTARY: DO YOU HAVE ANY RASHES OR OPEN SORES? NO . ALLERGIC/IMMUNO: ARE YOU ALLERGIC TO SHELLFISH OR IV DYE? NO . ANY NEW ALLERGIES? NO . PSYCHIATRIC: DO YOU HAVE THOUGHTS OF HURTING YOURSELF OR SOMEONE ELSE? NO . ARE YOU ABUSED, NEGLECTED, OR IN AN UNSAFE ENVIRONMENT? NO . ENDOCRINOLOGY: ARE YOU DIABETIC? NO . OTHER: DO YOU NEED ANY PRESCRIPTIONS? NO . IF YES, PLEASE LIST: ____ . ANY NEW PROBLEMS WITH YOUR MEDICATIONS? NO . WHEN DID YOU LAST EAT? ____ . WHEN DID YOU LAST DRINK? ____ . WHAT DID YOU LAST DRINK? ____ . NAME OF PERSON DRIVING YOU HOME? ____ . DO YOU HAVE ANY OTHER QUESTIONS OR CONCERNS NO . REVIEWED BY: PROVIDER: STEPHAN BERGER . VITAL SIGNS WT 187 LBS, HT 5'1", BMI 35.33 INDEX, BP 127/62 MM HG, HR 74 /MIN, RR 18 /MIN, TEMP 97.9 F, OXYGEN SAT % 07, SAFE IN ENV? (Y/N) YES, REVIEWED BY: KG. EXAMINATION GENERAL EXAMINATION: LUNGS:LUNG SOUNDS ARE CLEAR. HEART:HEART RATE REGULAR. MUSCULOSKELETAL:*, MUSCLE STRENGTH TESTING 5/5 BILATERAL, PALPATION: POSITIVE FOR PAIN OVER L/S SPINE. POSITIVE FOR PAIN OVER L/S PARSPINALS. DIAGNOSTIC:MRI L/S SPINE -04-15-2015-REVIEWED.. ASSESSMENTS INTERVERTEBRAL DISC DISORDERS WITH RADICULOPATHY, LUMBAR REGION - M51.16 (PRIMARY) TREATMENT INTERVERTEBRAL DISC DISORDERS WITH RADICULOPATHY, LUMBAR REGION NOTES: HAD LESI X2 AND MOST RECENT, RIGHT L3/4 TRANSFORAMINAL WITHOUT IMPROVEMENT AND SOME AGGREVATION IN PAIN.TODAY I DISCUSSED THERAPEUTIC LUMBAR FACET BLOCK.SHE WOULD LIKE TO TALK TO HER PRIMARY CARE PROVIDER ABOUT THIS . PROCEDURE CODES FA211 ESTABILISHED PATIENT [facility] CHARGE G8730 PAIN ASSESS POS TOOL F/U PLAN DOC G8427 DOC MEDS VERIFIED W/PT OR RE DISPOSITION & COMMUNICATION FOLLOW UP PT WILL CALL IF NEEDED ELECTRONICALLY SIGNED BY CELINE HOFFMAN ON 12/01/2016 AT 05:31 PM EDT DISCLAIMER : THIS IS A VISIT SUMMARY EXTRACTED FROM THE [email or web address] CHART. IT IS NOT A COPY OF THE [email or web address] PROGRESS NOTE. KRISTOFER
== END ==
LOC: M PAIN 11:00
PROVIDERS: ATTEND Nurse Practitioner Family
DX: M51.16 Intervertebral disc disorders with radiculopathy, lumbar region (principal); Z79.899 Other long term (current) drug therapy; Z88.8 Allergy status to other drugs, medicaments and biological substances; Z88.6 Allergy status to analgesic agent; Z91.018 Allergy to other foods; I10 Essential (primary) hypertension; M15.0 Primary generalized (osteo)arthritis; K57.92 Diverticulitis of intestine, part unspecified, without perforation or abscess without bleeding; K44.9 Diaphragmatic hernia without obstruction or gangrene; K21.9 Gastro-esophageal reflux disease without esophagitis; M81.0 Age-related osteoporosis without current pathological fracture; J30.2 Other seasonal allergic rhinitis; M48.06 Spinal stenosis, lumbar region

== ENCOUNTER → 2016-11-25 | Outpatient (CLI) | payer MEDICARE ==
--- NOTE | 2016-11-25 14:31 | REP ---
RIGHT HIP, TWO VIEWS: HISTORY: Pain. COMPARISON: 12/16/2009 There is no acute fracture or dislocation. There is narrowing of the joint space. There is sclerosis in the acetabulum. IMPRESSION: Degenerative change as described above.
== END ==
LOC: M CLY 13:17
PROVIDERS: ATTEND Family Medicine
DX: M15.0 Primary generalized (osteo)arthritis (principal)
CPT/HCPCS: 73502; G0463

== ENCOUNTER → 2017-01-10 | Outpatient (CLI) | payer MEDICARE ==
--- NOTE | 2017-01-10 17:40 | REP ---
RIGHT KNEE, FIVE VIEWS: HISTORY: Pain. The patient is status post right total knee replacement. There is no acute fracture or dislocation. Calcifications are present adjacent to the medial femoral condyle. This represents ligamentous or tendon calcification. The bony structure is osteopenic. IMPRESSION: The patient is status post right total knee replacement.
== END ==
LOC: M CLY 15:31
PROVIDERS: ATTEND Family Medicine
DX: M25.561 Pain in right knee (principal); G89.29 Other chronic pain; Z96.651 Presence of right artificial knee joint
CPT/HCPCS: 73564; G0463

== ENCOUNTER → 2017-06-07 | Outpatient (CLI) | payer MEDICARE ==
--- NOTE | 2017-06-07 21:49 | REP ---
LUMBAR SPINE, SEVEN VIEWS: HISTORY: Spinal stenosis. COMPARISON: 10/16/2007. There is no acute fracture or subluxation. The lumbar intervertebral discs are decreased in height. Vacuum phenomenon is present at the L1-2, L2-3 and L4-5 levels. These findings are consistent with disc degeneration. Osteophytes are present throughout the lumbar spine. There is narrowing of the L3-4 through L5-S1 facet joints. There is scoliosis convex to the left. IMPRESSION: Degenerative change as described above.
--- NOTE | 2017-06-07 21:50 | REP ---
LEFT ANKLE, FIVE VIEWS: HISTORY: Pain. There is no acute fracture or dislocation. There is narrowing of the joint space with associated sclerosis. An ossified density is present inferior to the medial malleolus. This represents ligamentous or tendon calcification. Osteophytes are present on the distal anterior tibia, anterior and posterior talus and inferior calcaneus. Soft tissue swelling is present. IMPRESSION: Degenerative change as described above.
== END ==
LOC: M CLY 12:57
PROVIDERS: ATTEND Family Medicine
DX: M25.78 Osteophyte, vertebrae (principal); M48.061 Spinal stenosis, lumbar region without neurogenic claudication; M19.072 Primary osteoarthritis, left ankle and foot
CPT/HCPCS: 72114; 73610; 80048; 84165; 85027; 85652; G0463

== ENCOUNTER → 2017-06-07 | Outpatient (REF) | payer MEDICARE ==
[2017-06-07 19:27] LABS: ANION GAP 8 MEQ/L (8-16); BLOOD UREA NITROGEN 16 MG/DL (7-18); CALCIUM LEVEL 9.8 MG/DL (8.8-10.2); CARBON DIOXIDE LEVEL 31 MEQ/L (21-32); CHLORIDE LEVEL 103 MEQ/L (98-107); CREATININE FOR GFR 0.76 MG/DL (0.55-1.02); GLOMERULAR FILTRATION RATE > 60.0 (>32); GLUCOSE, FASTING 87 MG/DL (83-110); MEAN CORPUSCULAR HEMOGLOBIN 28.1 pg (27.0-33.0); MEAN CORPUSCULAR HGB CONC 33.3 g/dl (32.0-36.5); MEAN CORPUSCULAR VOLUME 84.5 fl (80.0-96.0); PLATELET COUNT, AUTOMATED 232 10^3/uL (150-450); POTASSIUM SERUM 3.8 MEQ/L (3.5-5.1); RED CELL DISTRIBUTION WIDTH 14.8 % (11.5-14.5); SODIUM LEVEL 142 MEQ/L (136-145); TOTAL PROTEIN 6.7 GM/DL (6.4-8.2); WHITE BLOOD COUNT 8.2 10^3/uL (4.0-10.0)
[2017-06-07 20:33] LABS: ERYTHROCYTE SEDIMENTATION RATE 11 mm/hr (0-30)
[2017-06-08 12:48] LABS: ALBUMIN 3.98 GM/DL (3.29-5.55); ALBUMIN % 59.4 % (55.8-66.1); GAMMA GLOBULIN % 12.2 % (11.1-18.8)
== END ==
LOC: M SFHCCLAY 12:35
PROVIDERS: ATTEND Family Medicine
DX: M48.061 Spinal stenosis, lumbar region without neurogenic claudication (principal); M25.572 Pain in left ankle and joints of left foot; G89.29 Other chronic pain; Z23 Encounter for immunization

== ENCOUNTER → 2018-06-25 | Outpatient (REF) | payer MEDICARE ==
[2018-06-25 18:02] LABS: ALBUMIN 3.8 GM/DL (3.2-5.2); ALBUMIN/GLOBULIN RATIO 1.27 (1.00-1.93); ALKALINE PHOSPHATASE 113 U/L (45-117); ALT/SGPT 16 U/L (12-78); ANION GAP 8 MEQ/L (8-16); AST/SGOT 20 U/L (7-37); BILIRUBIN,TOTAL 0.8 MG/DL (0.2-1.0); BLOOD UREA NITROGEN 17 MG/DL (7-18); CALCIUM LEVEL 8.9 MG/DL (8.8-10.2); CARBON DIOXIDE LEVEL 29 MEQ/L (21-32); CHLORIDE LEVEL 105 MEQ/L (98-107); CREATININE FOR GFR 0.86 MG/DL (0.55-1.30); GLOMERULAR FILTRATION RATE > 60.0 (>32); GLUCOSE, FASTING 91 MG/DL (70-100); SODIUM LEVEL 142 MEQ/L (136-145); TOTAL PROTEIN 6.8 GM/DL (6.4-8.2)
== END ==
LOC: M SFHCCLAY 09:07
DX: I10 Essential (primary) hypertension (principal); M15.0 Primary generalized (osteo)arthritis
CPT/HCPCS: 84443

== ENCOUNTER → 2018-08-23 | Outpatient (REF) | payer MEDICARE | LOC: M SFHCCLAY 09:55 | PROVIDERS: ATTEND Family Medicine | DX: R79.89 Other specified abnormal findings of blood chemistry (principal); E07.9 Disorder of thyroid, unspecified ==

== ENCOUNTER → 2018-10-25 | Outpatient (REF) | payer MEDICARE ==
[2018-10-25 16:44] LABS: C REACTIVE PROTEIN QUANTITATIV < 0.30 MG/DL (0.00-0.30); URIC ACID 6.8 MG/DL (2.6-6.0)
[2018-10-28 00:07] LABS: Lyme Disease IgG/IgM Antibodie <0.91 ISR (0.00-0.90); Lyme Disease IgM Ab Quantitati <0.80 index (0.00-0.79)
[2018-10-29 00:07] LABS: ANA (HEP2) Positive (.); CYCLIC CITRULLINATED PEPTIDE 4 units (0-19)
== END ==
LOC: M SFHCCLAY 13:25
PROVIDERS: ATTEND Family Medicine
DX: M15.0 Primary generalized (osteo)arthritis (principal); R76.8 Other specified abnormal immunological findings in serum; M25.50 Pain in unspecified joint
CPT/HCPCS: 84550; 85652; 86038; 86140; 86200; 86617; G0463

== ENCOUNTER → 2019-02-07 | Outpatient (REF) | payer MEDICARE ==
[2019-02-07 12:23] LABS: BLOOD UREA NITROGEN 19 MG/DL (7-18); CALCIUM LEVEL 9.1 MG/DL (8.8-10.2); CARBON DIOXIDE LEVEL 30 MEQ/L (21-32); CHLORIDE LEVEL 106 MEQ/L (98-107); CHOLESTEROL LEVEL 166 MG/DL (<200); CHOLESTEROL RISK RATIO 3.458 (<5); CREATININE FOR GFR 0.88 MG/DL (0.55-1.30); GLOMERULAR FILTRATION RATE > 60.0 (>32); GLUCOSE, FASTING 94 MG/DL (70-100); HDL CHOLESTEROL 48 MG/DL (>40); LDL CHOLESTEROL 98 MG/DL (<100); NON-HDL-C 118 MG/DL; POTASSIUM SERUM 3.9 MEQ/L (3.5-5.1); SODIUM LEVEL 142 MEQ/L (136-145); TRIGLYCERIDES LEVEL 98 MG/DL (<150)
[2019-02-07 17:38] LABS: MALB URINE SIEMENS 36.8 MG/L; MAU/CREAT RATIO 21.3 MCG/MG (0.0-30.0)
== END ==
LOC: M SFHCCLAY 07:57
PROVIDERS: ATTEND Family Medicine
DX: I10 Essential (primary) hypertension (principal)

== ENCOUNTER 2019-07-28 14:09 | Inpatient (IN) | payer MEDICARE ==
[~2019-07-28] VITALS: Ht 152.4 cm; Wt 80.0 kg
[2019-09-15] MEDS ORDERED: cefTRIAXone SOD 1 GM in D5W MINI-BAG PLUS 50 ML IV SCH ×2
[2019-09-15 03:40] VITALS: BP 137/87
[2019-09-15] MEDS ORDERED: IPRATROPIUM 0.5MG/ALBUTEROL 2.5MG INH SOL UD 3ML (DUONEB)(J7620) NEB PRN (04:15)
--- NOTE | 2019-09-15 04:39 | HPEPDOC ---
General Date of Admission Sep 15, 2019 at 03:40 Date of Service: Sep 15, 2019 Primary Care Physician: Marek Mitchell MD Attending Physician: INDIRA CHAVEZ DO Chief Complaint The patient is a 89-year-old female admitted with a reason for visit of Pneumonia. Source: Patient History of Present Illness Marisol is an 89-year-old female who presented to [facility] last night complaining of a cough, congestion, and increased shortness of breath for one week. Her symptoms started with a cough, that was worse at night. Over the last week it has progressed so that she cannot lie down due to coughing. Her shortness of breath is secondary to her cough, which is worsened with laying down as stated above. She says that she does not have much sputum production, and what comes up is clear. She denies any fevers or Reiger's, chest pain or headache. She denies lower extremity swelling. She denies having a sore throat, hoarseness, nasal congestion or nasal discharge. She denies sinus pressure, sinus drainage, or ear pain. She denies any sick contacts. Of note, she does live right across the street from her primary care office, but did not seek medical attention due to not having a fever at home. Records from [facility] were reviewed. There is no leukocytosis with a white count of 5.2. Hemoglobin and hematocrit are stable at 15.4 and 46.5 respectively. Platelet count was normal at 203. Electrolytes were in balance with a sodium of 143, a potassium of 3.4, a chloride of 101, and a CO2 of 29. Creatinine is 0.8. Liver profile was unremarkable except for relatively mild increase in alkaline phosphatase of 132. Lactic acid was 0.6 and proBNP was 148. Urinalysis showed urine that was clear yellow with a specific gravity of 1.010, 1+ leukocyte esterase, nitrite negative, urine protein/glucose/ketones negative, urinary BC 20-25, and urine bacteria 3+. Influenza A and B were negative. Imaging is not available, however she was diagnosed with a right lower lobe infiltrate. Home Medications Scheduled Amlodipine Besylate (Amlodipine Besylate) 2.5 Mg Tablet, 2.5 MG PO DAILY, (Reported) Lutein/Zeaxanthin (Ocuvite Lutein 25-5 mg Softgel) 1 Each Capsule, 2 CAP PO DAILY, (Reported) Herrick-3/Dha/Epa/Fish Oil (Fish Oil 1,000 mg Softgel) 1 Each Capsule, 1 CAP PO DAILY, (Reported) Propylene Glycol/Peg 400 (Systane 0.3-0.4% Eye Drops) 15 Ml Drops, 2 DROP OU BID, (Reported) Triamterene/Hydrochlorothiazid (Triamterene-Hctz 37.5-25 mg Tb) 1 Each Tablet, 1 TAB PO DAILY, (Reported) Scheduled PRN Famotidine (Famotidine) 20 Mg Tablet, 20 MG PO BID PRN for INDIGESTION, (Reported) Allergies Coded Allergies: lisinopril (Verified Allergy, Severe, SWELLING / ANGIOEDEMA, 09/15/19) aspirin (Verified Adverse Reaction, Mild, NOSE BLEEDS, 09/15/19) Past Medical History Medical History Osteoarthritis Hypertension Osteoporosis GERD secondary to hiatal hernia Degenerative disc disease in the lumbar spine Diverticulitis Macular degeneration Allergic rhinitis Spinal stenosis Toward and rotator cuff of the left shoulder Surgical History Colonoscopy 2013 Bilateral knee replacements Hysterectomy Cholecystectomy Tonsillectomy Adenoidectomy Carpal tunnel release Right ear mastoidectomy Family History Colon cancer of both mother and father, both Social History She is a former smoker, she quit in her 30s. She has the occasional drink, less than 1 in a month. She is retired, and denies any illicit drug use. She does live alone in her own home, across the street from the [facility] office. A-FIB/CHADSVASC A-FIB History Current/History of A-Fib/PAF?: No Physical Examination General Exam: Positive: Alert, Cooperative, No Acute Distress Eye Exam: Positive: PERRLA, Conjunctiva & lids normal, EOMI, Sclera icteric ENT Exam: Positive: Atraumatic, Mucous membr. moist/pink, Pharynx Normal Neck Exam: Positive: Supple; Negative: JVD, thyromegaly Chest Exam: Positive: Wheezing; Negative: Clear to auscultation (diffuse inspiratory and expiratory wheezes with diminished air movement at the left base.), Rales, Rhonchi Heart Exam: Positive: Rate Normal, Normal S1, Normal S2; Negative: Gallops, Murmurs, Rubs Abdomen Exam: Positive: Normal bowel sounds, Soft; Negative: Tenderness Extremity Exam: Positive: Normal pulses; Negative: Clubbing, Cyanosis, Edema Skin Exam: Positive: Nl turgor and temperature; Negative: Rash, Breakdown Neuro Exam: Positive: Normal Gait, Normal Speech Psych Exam: Positive: Mental status NL, Mood NL, Oriented x 3 Vital Signs Temperature 97.8, pulse 79 and regular, respiratory rate 19 and unlabored, blood pressure 137/87, pulse oximetry is 97% on room air Laboratory Data Labs 24H Laboratory Tests 2 09/15/19 04:00: Assessment/Plan Assessment: 89-year-old female who was diagnosed with a right lower lobe infiltrate [facility] and started on treatment for community-acquired pneumonia. Plan: 1. Community-acquired pneumonia. Will obtain PA and lateral chest x-ray. Has received 1 dose of Rocephin and one dose of doxycycline. We'll continue with Rocephin and azithromycin. Has received 1 dose of IV Solu-Medrol, will continue with 4 additional days of oral prednisone. DuoNebs, oxygen orders for titration greater than 92%, and pulmonary toilet. 2. Hypertension, continue home meds. 3. DVT prophylaxis. Heparin Disposition: Inpatient, as we expect greater than 2 midnights. Patient will be transferred to the family medicine service starting at 0700 hours Plan / VTE VTE Prophylaxis Ordered?: Yes RUTHIE CANDELARIO D.O. Sep 15, 2019 04:39 INDIRA CHAVEZ DO Sep 15, 2019 06:27
[2019-09-15 04:42] LABS: HEMATOCRIT 46.4 % (36.0-47.0); HEMOGLOBIN 15.1 g/dl (12.0-15.5); MEAN CORPUSCULAR HEMOGLOBIN 27.9 pg (27.0-33.0); MEAN CORPUSCULAR HGB CONC 32.5 g/dl (32.0-36.5); MEAN CORPUSCULAR VOLUME 85.8 fl (80.0-96.0); PLATELET COUNT, AUTOMATED 165 10^3/uL (150-450); RED BLOOD COUNT 5.41 10^6/uL (4.00-5.40)
[2019-09-15] MEDS ORDERED: SYST1SOL OU (04:50)
[2019-09-15] MEDS ORDERED: AMLO25TA PO (04:50)
[2019-09-15] MEDS ORDERED: OCUV1CAP4 PO (04:50)
[2019-09-15] MEDS ORDERED: FAMO1TAB11 PO (04:50)
[2019-09-15] MEDS ORDERED: TRIA37.5 PO (04:50)
[2019-09-15] MEDS ORDERED: OMEG10002 PO (04:50)
[2019-09-15] MEDS ORDERED: AZITHROMYCIN INJ 500 MG, VIAL MATE ADAPTER 1 EACH in D5W 250 ML IV SCH (05:00)
[2019-09-15 05:07] LABS: BLOOD UREA NITROGEN 16 MG/DL (7-18); CALCIUM LEVEL 8.4 MG/DL (8.8-10.2); CARBON DIOXIDE LEVEL 21 MEQ/L (21-32); CHLORIDE LEVEL 108 MEQ/L (98-107); GLOMERULAR FILTRATION RATE > 60.0 (>32); GLUCOSE, FASTING 136 MG/DL (70-100); POTASSIUM SERUM 4.7 MEQ/L (3.5-5.1); SODIUM LEVEL 137 MEQ/L (136-145)
[2019-09-15 06:00] VITALS: BP 129/81
[2019-09-15] MEDS: IPRATROPIUM 0.5MG/ALBUTEROL 2.5MG INH SOL UD 3ML (DUONEB)(J7620) NEB SCH ×2 (08:00→14:00)
[2019-09-15] MEDS ORDERED: guaiFENesin ER 600 MG TAB PO SCH (09:00)
[2019-09-15] MEDS ORDERED: predniSONE 20 MG TAB PO SCH (09:00)
[2019-09-15] MEDS ORDERED: HEPARIN SOD (PORCINE) 5000 UNITS/ML VIAL (J1644 PER 1000UNITS) SC SCH (09:00)
--- NOTE | 2019-09-15 11:30 | REP ---
Clinical: Dyspnea. Possible pneumonia . Comparison: 10/19/2015 Technique: PA and lateral. Findings: The mediastinum and cardiac silhouette are normal. The lung ackerman are clear and without acute consolidation, effusion, or pneumothorax. The skeletal structures are intact and normal. Impression: 1. No acute cardiopulmonary process. Electronically Signed by Rip Brown MD 09/15/2019 11:22 A
--- NOTE | 2019-09-15 12:44 | REP ---
Clinical: Dyspnea. Technique: Axial noncontrast images from the thoracic inlet to the upper abdomen with coronal and sagittal re-formations. Findings: Moderate age-related interstitial changes with moderate emphysematous disease and bronchiectasis. No acute consolidation or atelectasis. No effusion. No pneumothorax. No obvious adenopathy. Atherosclerotic changes to the thoracic aorta and coronary arteries noted without aortic aneurysm or cardiomegaly. No pericardial effusion. Surrounding musculoskeletal structures demonstrate age-related changes. Impression: No acute mediastinal or pleuroparenchymal process. Electronically Signed by Rip Brown MD 09/15/2019 12:35 P
[2019-09-15 14:00] VITALS: BP 135/80
[2019-09-15] MEDS ORDERED: GUAIDM5UD PO (15:15)
[2019-09-16] MEDS ORDERED: cefTRIAXone SOD 1 GM in D5W MINI-BAG PLUS 50 ML IV SCH ×2
--- NOTE | 2019-09-18 02:17 | DS.PDOC ---
Discharge Summary General Date of Admission Sep 15, 2019 at 03:40 Date of Discharge September 15, 2019 Discharge Summary PROCEDURES PERFORMED DURING STAY: [None]. ADMITTING DIAGNOSES: 1. community acquired pneumonia 2. hypertension DISCHARGE DIAGNOSES: 1. bronchitis 2. hypertension 3. upper respiratory infection COMPLICATIONS/CHIEF COMPLAINT: Pneumonia. HISTORY OF PRESENT ILLNESS: Marisol is an 89-year-old female who presented to [facility] last night complaining of a cough, congestion, and increased shortness of breath for one week. Her symptoms started with a cough, that was worse at night. Over the last week it has progressed so that she cannot lie down due to coughing. Her shortness of breath is secondary to her cough, which is worsened with laying down as stated above. She says that she does not have much sputum production, and what comes up is clear. She denies any fevers or Reiger's, chest pain or headache. She denies lower extremity swelling. She denies having a sore throat, hoarseness, nasal congestion or nasal discharge. She denies sinus pressure, sinus drainage, or ear pain. She denies any sick contacts. Of note, she does live right across the street from her primary care office, but did not seek medical attention due to not having a fever at home. Records from [facility] were reviewed. There is no leukocytosis with a white count of 5.2. Hemoglobin and hematocrit are stable at 15.4 and 46.5 respe ctively. Platelet count was normal at 203. Electrolytes were in balance with a sodium of 143, a potassium of 3.4, a chloride of 101, and a CO2 of 29. Creatinine is 0.8. Liver profile was unremarkable except for relatively mild increase in alkaline phosphatase of 132. Lactic acid was 0.6 and proBNP was 148. Urinalysis showed urine that was clear yellow with a specific gravity of 1.010, 1+ leukocyte esterase, nitrite negative, urine protein/glucose/ketones negative, urinary BC 20-25, and urine bacteria 3+. Influenza A and B were negative. Imaging is not available, however she was diagnosed with a right lower lobe infiltrate. HOSPITAL COURSE: Patient appeared comfortable, afebrile and with good oxygen saturations on room air. CXR and chest CT both showed no acute findings. Discussed results with patient and family; clinically she had bronchitis and an upper respiratory infection. She passed physical therapy, and patient and daughter were happy for her to be discharged home. DISCHARGE MEDICATIONS: Please see below. ALLERGIES: Please see below. PHYSICAL EXAMINATION ON DISCHARGE: VITAL SIGNS: Please see below. GENERAL: elderly female in NAD HEENT: mucous membranes moist, secretions in nares, sinuses nontender NECK: supple CARDIOVASCULAR EXAMINATION: regular rate and rhythm RESPIRATORY EXAMINATION: clear to auscultation bilat, coughs frequently, no increased work of breathing ABDOMINAL EXAMINATION: bowel sounds positive; soft, nontender and nondistended EXTREMITIES: no edema PSYCHIATRIC EXAMINATION: appropriate mood and affect LABORATORY DATA: Please see below. IMAGING: CXR showed: No acute cardiopulmonary process. Chest CT showed: Moderate age-related interstitial changes with moderate emphysematous disease and bronchiectasis. No acute consolidation or atelectasis. No effusion. No pneumothorax. No obvious adenopathy. Atherosclerotic changes to the thoracic aorta and coronary arteries noted without aortic aneurysm or cardiomegaly. No pericardial effusion. Surrounding musculoskeletal structures demonstrate age- related changes. PROGNOSIS: good ACTIVITY: [As tolerated]. DIET: regular DISCHARGE PLAN: home DISPOSITION: 01 Home, Self-Care. DISCHARGE INSTRUCTIONS: Contact the office for followup. Take all medications as prescribed. Contact the office for worsening cough, fever, shortness of breath, or any other concerning symptom. ITEMS TO FOLLOWUP ON ON OUTPATIENT: bronchitis DISCHARGE CONDITION: [Stable]. TIME SPENT ON DISCHARGE: Greater than 10 minutes. Vital Signs/I&Os Vital Signs Date Time Temp Pulse Resp B/P (MAP) Pulse Ox O2 Delivery O2 Flow Rate FiO2 09/15/19 14:00 98.5 88 19 135/80 (98) 91 Room Air Microbiology Microbiology 09/15/19 Blood Culture - Preliminary, Resulted No Growth after 48 hours. All Specime... 09/15/19 Blood Culture - Preliminary, Resulted No Growth after 48 hours. All Specime... Discharge Medications Scheduled Amlodipine Besylate (Amlodipine Besylate) 2.5 Mg Tablet, 2.5 MG PO DAILY, (R eported) Guaifenesin/Dextromethorphan (Guaifenesin Dm Syrup) 5 Ml Syrup, 5 ML PO Q4H for cough and congestion Lutein/Zeaxanthin (Ocuvite Lutein 25-5 mg Softgel) 1 Each Capsule, 2 CAP PO DAILY, (Reported) Buda-3/Dha/Epa/Fish Oil (Fish Oil 1,000 mg Softgel) 1 Each Capsule, 1 CAP PO DAILY, (Reported) Propylene Glycol/Peg 400 (Systane 0.3-0.4% Eye Drops) 15 Ml Drops, 2 DROP OU BID, (Reported) Triamterene/Hydrochlorothiazid (Triamterene-Hctz 37.5-25 mg Tb) 1 Each Tablet, 1 TAB PO DAILY, (Reported) Scheduled PRN Famotidine (Famotidine) 20 Mg Tablet, 20 MG PO BID PRN for INDIGESTION, (Reported) Allergies Coded Allergies: lisinopril (Verified Allergy, Severe, SWELLING / ANGIOEDEMA, 09/15/19) aspirin (Verified Adverse Reaction, Mild, NOSE BLEEDS, 09/15/19) LEW NOONAN DO Sep 18, 2019 02:17
== END 2019-09-15 16:16 | disposition home or self-care (01) | DRG 203 ==
LOC: EDRESERV 14:09 → ENRESERVDT 09-15 01:15 → ENRESERVTM 09-15 01:15 → M MSPAV 09-15 03:40
PROVIDERS: ADMIT Internal Medicine; ATTEND Family Medicine
DX: J40 Bronchitis, not specified as acute or chronic (principal); M19.90 Unspecified osteoarthritis, unspecified site; I10 Essential (primary) hypertension; M81.0 Age-related osteoporosis without current pathological fracture; K21.9 Gastro-esophageal reflux disease without esophagitis; J06.9 Acute upper respiratory infection, unspecified; K44.9 Diaphragmatic hernia without obstruction or gangrene; M51.36 Other intervertebral disc degeneration, lumbar region; H35.30 Unspecified macular degeneration; J30.9 Allergic rhinitis, unspecified; Z96.653 Presence of artificial knee joint, bilateral; Z90.49 Acquired absence of other specified parts of digestive tract; Z90.710 Acquired absence of both cervix and uterus; Z88.6 Allergy status to analgesic agent; Z88.8 Allergy status to other drugs, medicaments and biological substances; Z87.891 Personal history of nicotine dependence; Z79.899 Other long term (current) drug therapy

== ENCOUNTER → 2019-08-09 | Outpatient (REF) | payer MEDICARE ==
[2019-08-09 16:36] LABS: HEMATOCRIT 49.1 % (36.0-47.0); HEMOGLOBIN 15.5 g/dl (12.0-15.5); MEAN CORPUSCULAR HEMOGLOBIN 27.3 pg (27.0-33.0); MEAN CORPUSCULAR HGB CONC 31.6 g/dl (32.0-36.5); MEAN CORPUSCULAR VOLUME 86.6 fl (80.0-96.0); PLATELET COUNT, AUTOMATED 255 10^3/uL (150-450); RED BLOOD COUNT 5.67 10^6/uL (4.00-5.40); WHITE BLOOD COUNT 6.9 10^3/uL (4.0-10.0)
[2019-08-09 16:50] LABS: ALBUMIN 4.2 GM/DL (3.2-5.2); BILIRUBIN,TOTAL 1.1 MG/DL (0.2-1.0); CALCIUM LEVEL 9.5 MG/DL (8.8-10.2); CREATININE FOR GFR 0.96 MG/DL (0.55-1.30); GLOMERULAR FILTRATION RATE 58.5 (>32); POTASSIUM SERUM 3.8 MEQ/L (3.5-5.1); THYROID STIMULATING HORMONE 4.76 uIU/ML (0.358-3.740); TOTAL PROTEIN 7.5 GM/DL (6.4-8.2)
== END ==
LOC: M SFHCCLAY 13:03
PROVIDERS: ATTEND Family Medicine
DX: R76.8 Other specified abnormal immunological findings in serum (principal); K29.00 Acute gastritis without bleeding; I10 Essential (primary) hypertension

== ENCOUNTER → 2020-01-28 | Outpatient (REF) | payer MEDICARE ==
[~2020-01-28] MED LIST changes: +AMLO25TA PO; +FAMO1TAB11 PO; +GUAIDM5UD PO; +OCUV1CAP4 PO; +OMEG10002 PO; +SYST1SOL OU; +TRIA37.5 PO
[2020-01-28 17:50] LABS: CALCIUM LEVEL 9.3 MG/DL (8.8-10.2); CREATININE FOR GFR 0.94 MG/DL (0.55-1.30); POTASSIUM SERUM 3.8 MEQ/L (3.5-5.1); THYROID STIMULATING HORMONE 4.11 uIU/ML (0.358-3.740)
== END ==
LOC: M SFHCCLAY 09:58
PROVIDERS: ATTEND Family Medicine
DX: I10 Essential (primary) hypertension (principal)

== ENCOUNTER → 2020-08-06 | Outpatient (REF) | payer MEDICARE ==
[2020-08-06 16:59] LABS: FREE T4 1.3 NG/DL (0.76-1.46); THYROID STIMULATING HORMONE 5.59 uIU/ML (0.358-3.740)
== END ==
LOC: M SFHCCLAY 13:35
PROVIDERS: ATTEND Family Medicine
DX: E03.9 Hypothyroidism, unspecified (principal)
CPT/HCPCS: 84439; 84443; G0463

== ENCOUNTER → 2020-09-29 | Outpatient (REF) | payer MEDICARE ==
[2020-09-29 16:24] LABS: HEMATOCRIT 43.6 % (36.0-47.0); HEMOGLOBIN 14.1 g/dl (12.0-15.5); MEAN CORPUSCULAR HEMOGLOBIN 28.5 pg (27.0-33.0); MEAN CORPUSCULAR HGB CONC 32.3 g/dl (32.0-36.5); MEAN CORPUSCULAR VOLUME 88.3 fl (80.0-96.0); PLATELET COUNT, AUTOMATED 238 10^3/uL (150-450); RED BLOOD COUNT 4.94 10^6/uL (4.00-5.40)
[2020-09-29 16:56] LABS: BILIRUBIN,TOTAL 0.9 MG/DL (0.2-1.0); CALCIUM LEVEL 9.7 MG/DL (8.8-10.2); CREATININE FOR GFR 1.01 MG/DL (0.55-1.30); FREE T4 1.14 NG/DL (0.76-1.46); GLOMERULAR FILTRATION RATE 55.1 (>32); POTASSIUM SERUM 4.4 MEQ/L (3.5-5.1); THYROID STIMULATING HORMONE 3.32 uIU/ML (0.358-3.740); TOTAL PROTEIN 7.1 GM/DL (6.4-8.2)
== END ==
LOC: M SFHCCLAY 10:31
PROVIDERS: ATTEND Family Medicine
DX: R10.13 Epigastric pain (principal); E03.9 Hypothyroidism, unspecified; I10 Essential (primary) hypertension; J45.909 Unspecified asthma, uncomplicated
CPT/HCPCS: 80053; 84439; 84443; 85027; G0463

== ENCOUNTER → 2020-11-19 | Outpatient (REF) | payer MEDICARE ==
[2020-11-19 16:51] LABS: CALCIUM LEVEL 9.5 MG/DL (8.8-10.2); CREATININE FOR GFR 0.97 MG/DL (0.55-1.30); GLOMERULAR FILTRATION RATE 57.7 (>32); POTASSIUM SERUM 4.3 MEQ/L (3.5-5.1)
== END ==
LOC: M SFHCCLAY 10:06
PROVIDERS: ATTEND Family Medicine
DX: I10 Essential (primary) hypertension (principal)

== ENCOUNTER → 2020-12-01 | Outpatient (CLI) | payer MEDICARE ==
--- NOTE | 2020-12-01 15:20 | REP ---
INDICATION: M50.90,CERVICAL NECK PAIN WITH EVIDENCE OF DISC DISEASE. NO HISTORY OF TRAUMA WHATSOEVER COMPARISON: None. TECHNIQUE: Eight views FINDINGS: The bones are demineralized. There is advanced disc space narrowing at every level particularly C4-5 through C6-7 inclusive. Advanced degenerative facet and uncovertebral joint changes are present at every level bilaterally. There is bilateral C6-7 foraminal narrowing. Flexion and extension is limited radiographically. There is an approximately 3 mm anterolisthesis of C3 on C4 which increases to 4 mm on flexion reducing to 2 mm on extension. The facet joints remain well aligned throughout movement. The bones are diffusely demineralized. The dens cannot be effectively evaluated secondary to the superimposition of osseous structures and/or dentition on all views. IMPRESSION: 1. Advanced chronic changes as described above. 2. C3 and C4 anterolisthesis as described above. Consider neurosurgical consultation. I have no priors for comparison. 3. Foraminal narrowing as described above. Although this plain radiographic evaluation of the cervical spine shows no evidence of a fracture, it should be remembered that CT is much more sensitive than plain radiography of the C-spine in detecting fractures. If this examination was ordered to rule out a fracture then CT of the cervical spine is recommended. <Electronically signed by Kwesi Fournier > 12/01/20 [id number]
== END ==
LOC: M CLY 13:50
PROVIDERS: ATTEND Family Medicine
DX: M50.321 Other cervical disc degeneration at C4-C5 level (principal); M50.322 Other cervical disc degeneration at C5-C6 level; M50.323 Other cervical disc degeneration at C6-C7 level; M50.90 Cervical disc disorder, unspecified, unspecified cervical region
CPT/HCPCS: 72050; G0463

== ENCOUNTER → 2021-02-15 | Outpatient (REF) | payer MEDICARE ==
[2021-02-15 12:54] LABS: BASO % 0.7 % (0.0-1.0); EOS # 0.1 10^3/uL (0.0-0.5); MEAN CORPUSCULAR HEMOGLOBIN 27.9 pg (27.0-33.0); MEAN CORPUSCULAR HGB CONC 31.8 g/dl (32.0-36.5); MEAN CORPUSCULAR VOLUME 87.8 fl (80.0-96.0); MONO # 0.6 10^3/uL (0.0-0.8); MONO % 10.5 % (2.0-8.0); NEUTROPHILS # 3.3 10^3/uL (1.5-8.5); NEUTROPHILS % 54.6 % (36.0-66.0); PLATELET COUNT, AUTOMATED 224 10^3/uL (150-450); RED BLOOD COUNT 5.01 10^6/uL (4.00-5.40); WHITE BLOOD COUNT 6.1 10^3/uL (4.0-10.0)
[2021-02-15 13:30] LABS: ALBUMIN 3.7 GM/DL (3.2-5.2); ALT/SGPT 19 U/L (12-78); BLOOD UREA NITROGEN 19 MG/DL (7-18); CALCIUM LEVEL 9.3 MG/DL (8.8-10.2); CARBON DIOXIDE LEVEL 32 MEQ/L (21-32); CHLORIDE LEVEL 104 MEQ/L (98-107); CPK CREATINE PHOSPHOKINASE 38 U/L (26-192); GLOMERULAR FILTRATION RATE > 60.0 (>32); GLUCOSE, FASTING 87 MG/DL (70-100); SODIUM LEVEL 142 MEQ/L (136-145); TOTAL PROTEIN 6.8 GM/DL (6.4-8.2)
[2021-02-15 13:32] LABS: TOTAL 25(OH) VITAMIN D 44.3 NG/ML (30.0-100.0)
== END ==
LOC: M LABDRAWC 12:03
PROVIDERS: ATTEND Psychiatry & Neurology Neurology
DX: R51.9 Headache, unspecified (principal); Z79.899 Other long term (current) drug therapy

== ENCOUNTER → 2021-02-25 | Outpatient (CLI) | payer MEDICARE ==
--- NOTE | 2021-02-25 14:33 | REP ---
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 COMPARISON: Comparison radiographs June 07, 2017.. TECHNIQUE: 6 views of the lumbar spine are obtained. FINDINGS: There is a moderate levoconvex rotoscoliotic curve in the lumbar spine which is unchanged. There is associated degenerative disc disease at each level exaggerated along the concave side of the scoliosis as before. Sacrum and SI joints are intact. There are surgical clips in the right upper quadrant. There is advanced degenerative disc disease at L4-5 on the lateral film with a degenerative grade 1 6 mm spondylolisthesis. This is unchanged. Osteoarthritic facet disease is noted especially on the right-side in the lumbar spine. This is unchanged. There is diverticular barium in the sigmoid colon. Vascular calcification is noted in a normal caliber aorta. IMPRESSION: Scoliosis and advanced degenerative disc and osteoarthritic facet disease unchanged from the June 07, 2017 prior study. Grade 1 spondylolisthesis at L4-5 due to degenerative disc and facet changes also stable. <Electronically signed by Poncho Monroe > 02/25/21 [id number]
== END ==
LOC: M CLY 13:41
PROVIDERS: ATTEND Family Medicine
DX: M48.061 Spinal stenosis, lumbar region without neurogenic claudication (principal); M43.16 Spondylolisthesis, lumbar region; M51.36 Other intervertebral disc degeneration, lumbar region
CPT/HCPCS: 72110; G0463

== ENCOUNTER 2021-05-07 09:01 | Outpatient (CLI) | payer MEDICARE ==
[~2021-05-07 09:01] MED LIST changes: +ALBUTEROL 90 MCG/ACT 8GM HFA INHALER INH PRN; +ALBUTEROL SULFATE 2.5 MG/0.5 ML INH NEB SOLN INH PRN; +CASIRIVIMAB/IMDEVIMAB 1,200 MG in NS 250 ML IV ONE; +EPINEPHrine INJ 1 MG/ML 1ML AMP IM PRN; +NS 1,000 ML IV SCH; +UNRESOLVED CLARIFICATION ENTRY XX SCH; +diphenhydrAMINE 50MG/ML VIAL (J1200) IV PRN; +methylPREDNISolone 125MG 2ML VIAL IV PRN
[2021-05-07 09:28] VITALS: BP 162/66
[2021-05-07 10:31] VITALS: BP 150/72
[2021-05-07 11:03] VITALS: BP 140/72
[2021-05-07 11:40] VITALS: BP 138/75
[2021-05-07 12:41] VITALS: BP 132/63
== END 2021-05-07 12:48 | disposition home or self-care (01) ==
LOC: M OPCLI4PR 09:01 → M MS4PR 09:06 → M OPCLI4PR 12:48
PROVIDERS: ATTEND Physician Assistant
DX: U07.1 COVID-19 (principal); Z88.6 Allergy status to analgesic agent

== ENCOUNTER → 2021-07-16 | Outpatient (CLI) | payer MEDICARE ==
[~2021-07-16] MED LIST changes: -ALBUTEROL 90 MCG/ACT 8GM HFA INHALER INH PRN; -ALBUTEROL SULFATE 2.5 MG/0.5 ML INH NEB SOLN INH PRN; -CASIRIVIMAB/IMDEVIMAB 1,200 MG in NS 250 ML IV ONE; -EPINEPHrine INJ 1 MG/ML 1ML AMP IM PRN; -NS 1,000 ML IV SCH; -UNRESOLVED CLARIFICATION ENTRY XX SCH; -diphenhydrAMINE 50MG/ML VIAL (J1200) IV PRN; -methylPREDNISolone 125MG 2ML VIAL IV PRN
== END ==
LOC: M PAIN 08:30
PROVIDERS: ATTEND Anesthesiology
DX: M79.18 Myalgia, other site (principal); I10 Essential (primary) hypertension; M81.0 Age-related osteoporosis without current pathological fracture; K21.9 Gastro-esophageal reflux disease without esophagitis; H35.30 Unspecified macular degeneration; M15.0 Primary generalized (osteo)arthritis; J30.9 Allergic rhinitis, unspecified; Z96.653 Presence of artificial knee joint, bilateral; Z79.899 Other long term (current) drug therapy; Z87.891 Personal history of nicotine dependence; Z88.6 Allergy status to analgesic agent; Z88.0 Allergy status to penicillin; Z88.5 Allergy status to narcotic agent; Z88.8 Allergy status to other drugs, medicaments and biological substances; Z91.018 Allergy to other foods

== ENCOUNTER → 2021-08-19 | Outpatient (CLI) | payer MEDICARE | LOC: M LABSMTC 11:15 | PROVIDERS: ATTEND Anesthesiology | DX: Z01.812 Encounter for preprocedural laboratory examination (principal); Z11.52 Encounter for screening for COVID-19 ==

== ENCOUNTER → 2021-08-24 | Outpatient (CLI) | payer MEDICARE ==
[~2021-08-24] MED LIST changes: +BUPIVACAINE HCL 0.25% 10ML VIAL As Ordered ONE; +BUPIVACAINE HCL 0.25% 30ML VIAL As Ordered ONE; +TRIAMCINOLONE ACETONIDE SUSP 40 MG/ML VIAL (J3301) As Ordered ONE; +diazePAM 2 MG TAB As Ordered ONE
== END ==
LOC: M PAIN 08:30
PROVIDERS: ATTEND Anesthesiology
DX: M79.18 Myalgia, other site (principal); I10 Essential (primary) hypertension; M81.0 Age-related osteoporosis without current pathological fracture; K21.9 Gastro-esophageal reflux disease without esophagitis; M51.37 Other intervertebral disc degeneration, lumbosacral region; H35.30 Unspecified macular degeneration; J30.9 Allergic rhinitis, unspecified; Z87.891 Personal history of nicotine dependence; Z79.899 Other long term (current) drug therapy; Z88.6 Allergy status to analgesic agent; Z88.5 Allergy status to narcotic agent; Z88.1 Allergy status to other antibiotic agents; Z88.8 Allergy status to other drugs, medicaments and biological substances; Z91.018 Allergy to other foods
CPT/HCPCS: 20552; J3301

== ENCOUNTER → 2021-09-15 | Outpatient (CLI) | payer MEDICARE ==
[~2021-09-15] MED LIST changes: -BUPIVACAINE HCL 0.25% 10ML VIAL As Ordered ONE; -BUPIVACAINE HCL 0.25% 30ML VIAL As Ordered ONE; -TRIAMCINOLONE ACETONIDE SUSP 40 MG/ML VIAL (J3301) As Ordered ONE; -diazePAM 2 MG TAB As Ordered ONE
== END ==
LOC: M PAIN 13:45
PROVIDERS: ATTEND Nurse Practitioner Family
DX: G89.29 Other chronic pain (principal); M47.812 Spondylosis without myelopathy or radiculopathy, cervical region; I10 Essential (primary) hypertension; M81.0 Age-related osteoporosis without current pathological fracture; K21.9 Gastro-esophageal reflux disease without esophagitis; H35.30 Unspecified macular degeneration; M15.0 Primary generalized (osteo)arthritis; J30.9 Allergic rhinitis, unspecified; M48.00 Spinal stenosis, site unspecified; Z87.891 Personal history of nicotine dependence; Z79.899 Other long term (current) drug therapy; Z88.6 Allergy status to analgesic agent; Z88.0 Allergy status to penicillin; Z88.5 Allergy status to narcotic agent; Z88.8 Allergy status to other drugs, medicaments and biological substances; Z91.018 Allergy to other foods

== ENCOUNTER → 2021-10-04 | Outpatient (REF) | payer MEDICARE ==
[2021-10-04 16:51] LABS: FREE T4 1.01 NG/DL (0.76-1.46); THYROID STIMULATING HORMONE 6.73 uIU/ML (0.358-3.740)
== END ==
LOC: M SFHCCLAY 10:47
PROVIDERS: ATTEND Family Medicine
DX: E03.9 Hypothyroidism, unspecified (principal)

== ENCOUNTER → 2022-01-12 | Outpatient (REF) | payer MEDICARE ==
[2022-01-12 12:07] LABS: BASO % 0.5 % (0.0-1.0); EOS # 0.1 10^3/uL (0.0-0.5); EOS % 1.5 % (0.0-3.0); HEMATOCRIT 40.9 % (36.0-47.0); HEMOGLOBIN 13.6 g/dl (12.0-15.5); LYMPH # 1.2 10^3/uL (1.5-5.0); LYMPH % 21.8 % (24.0-44.0); MEAN CORPUSCULAR HEMOGLOBIN 29.2 pg (27.0-33.0); MEAN CORPUSCULAR HGB CONC 33.3 g/dl (32.0-36.5); MONO # 0.5 10^3/uL (0.0-0.8); MONO % 8.2 % (2.0-8.0); NEUTROPHILS # 3.7 10^3/uL (1.5-8.5); NEUTROPHILS % 67.6 % (36.0-66.0); PLATELET COUNT, AUTOMATED 235 10^3/uL (150-450); RED BLOOD COUNT 4.65 10^6/uL (4.00-5.40); WHITE BLOOD COUNT 5.5 10^3/uL (4.0-10.0)
[2022-01-12 12:28] LABS: ERYTHROCYTE SEDIMENTATION RATE 7 mm/hr (0-30)
[2022-01-12 12:41] LABS: ALBUMIN 3.7 GM/DL (3.2-5.2); ALT/SGPT 20 U/L (12-78); BILIRUBIN,TOTAL 0.7 MG/DL (0.2-1.0); BLOOD UREA NITROGEN 19 MG/DL (7-18); CALCIUM LEVEL 9.7 MG/DL (8.8-10.2); CARBON DIOXIDE LEVEL 31 MEQ/L (21-32); CHLORIDE LEVEL 107 MEQ/L (98-107); CREATININE FOR GFR 0.93 MG/DL (0.55-1.30); GLOMERULAR FILTRATION RATE > 60.0 (>32); GLUCOSE, FASTING 114 MG/DL (70-100); LIPASE 148 U/L (73-393); POTASSIUM SERUM 3.8 MEQ/L (3.5-5.1); RHEUMATOID FACTOR QUANT < 10.0 IU/ML (<15.0); SODIUM LEVEL 145 MEQ/L (136-145); TOTAL PROTEIN 6.7 GM/DL (6.4-8.2)
== END ==
LOC: M SFHCCLAY 08:08
PROVIDERS: ATTEND Family Medicine
DX: R11.0 Nausea (principal); R53.81 Other malaise; R63.4 Abnormal weight loss; M79.18 Myalgia, other site; K57.90 Diverticulosis of intestine, part unspecified, without perforation or abscess without bleeding

== ENCOUNTER → 2022-01-26 | Outpatient (CLI) | payer MEDICARE ==
[~2022-01-26] MED LIST changes: +GASTROGRAFIN SOLUTION 30ML (Q9963) As Ordered ONE; +ISOVUE-370 76% 100ML VIAL As Ordered ONE
== END ==
LOC: M RAD 11:21
PROVIDERS: ATTEND Family Medicine
DX: R63.4 Abnormal weight loss (principal); M79.18 Myalgia, other site; K57.90 Diverticulosis of intestine, part unspecified, without perforation or abscess without bleeding
CPT/HCPCS: 74177; Q9963; Q9967

== ENCOUNTER 2022-01-30 09:50 | Emergency (ER) | payer MEDICARE ==
[~2022-01-30] VITALS: Ht 152.4 cm; Wt 79.1 kg
[~2022-01-30 09:50] MED LIST changes: -GASTROGRAFIN SOLUTION 30ML (Q9963) As Ordered ONE; -ISOVUE-370 76% 100ML VIAL As Ordered ONE
[2022-01-30 10:14] VITALS: BP 142/82
[2022-01-30 10:45] LABS: BASO % 0.5 % (0.0-1.0); EOS # 0.1 10^3/uL (0.0-0.5); EOS % 0.8 % (0.0-3.0); HEMATOCRIT 43.2 % (36.0-47.0); HEMOGLOBIN 14.4 g/dl (12.0-15.5); LYMPH # 1.2 10^3/uL (1.5-5.0); LYMPH % 17.6 % (24.0-44.0); MEAN CORPUSCULAR HGB CONC 33.3 g/dl (32.0-36.5); MEAN CORPUSCULAR VOLUME 86.9 fl (80.0-96.0); MONO # 0.5 10^3/uL (0.0-0.8); NEUTROPHILS # 4.8 10^3/uL (1.5-8.5); NEUTROPHILS % 72.8 % (36.0-66.0); PLATELET COUNT, AUTOMATED 245 10^3/uL (150-450); RED BLOOD COUNT 4.97 10^6/uL (4.00-5.40); WHITE BLOOD COUNT 6.5 10^3/uL (4.0-10.0)
[2022-01-30] MEDS ORDERED: METOCLOPRAMIDE INJ 10MG/2ML VIAL (J2765 PER 1) IV ONE (10:55)
[2022-01-30 11:25] LABS: ALBUMIN 3.8 GM/DL (3.2-5.2); BILIRUBIN,DIRECT 0.2 MG/DL (0.0-0.2); BILIRUBIN,TOTAL 0.9 MG/DL (0.2-1.0); MAGNESIUM LEVEL 1.3 MG/DL (1.8-2.4); TOTAL PROTEIN 6.7 GM/DL (6.4-8.2)
[2022-01-30] MEDS ORDERED: MAG SULF 1GM/100ML (MAG RUN) 1 GM in IV 1 EA IV ONE ×2 (11:40→12:40)
== END 2022-01-30 15:53 | disposition home or self-care (01) ==
LOC: M ED 09:50 → EDBD 09:50 → M ED 15:53
DX: E83.42 Hypomagnesemia (principal); I10 Essential (primary) hypertension; K21.9 Gastro-esophageal reflux disease without esophagitis; K44.9 Diaphragmatic hernia without obstruction or gangrene; M19.90 Unspecified osteoarthritis, unspecified site; Z88.8 Allergy status to other drugs, medicaments and biological substances; Z79.899 Other long term (current) drug therapy; Z87.891 Personal history of nicotine dependence
CPT/HCPCS: 80047; 80076; 83605; 83690; 83735; 85025; 93005; 96365; 96367; 96375; 99284; J2765; J3475

== ENCOUNTER → 2022-02-16 | Outpatient (REF) | payer MEDICARE ==
[2022-02-16 11:54] LABS: CALCIUM LEVEL 9.5 MG/DL (8.8-10.2); CREATININE FOR GFR 1.01 MG/DL (0.55-1.30); GLOMERULAR FILTRATION RATE 54.9 (>32); MAGNESIUM LEVEL 1.5 MG/DL (1.8-2.4); POTASSIUM SERUM 3.8 MEQ/L (3.5-5.1)
== END ==
LOC: M SFHCCLAY 08:55
PROVIDERS: ATTEND Family Medicine
DX: E83.42 Hypomagnesemia (principal)

== ENCOUNTER → 2022-03-11 | Outpatient (REF) | payer MEDICARE ==
[2022-03-11 11:43] LABS: HEMATOCRIT 42.4 % (36.0-47.0); MEAN CORPUSCULAR HEMOGLOBIN 28.7 pg (27.0-33.0); MEAN CORPUSCULAR VOLUME 87.1 fl (80.0-96.0); PLATELET COUNT, AUTOMATED 260 10^3/uL (150-450); RED BLOOD COUNT 4.87 10^6/uL (4.00-5.40); WHITE BLOOD COUNT 8.9 10^3/uL (4.0-10.0)
[2022-03-11 12:04] LABS: CALCIUM LEVEL 9.4 MG/DL (8.8-10.2); CREATININE FOR GFR 1.05 MG/DL (0.55-1.30); GLOMERULAR FILTRATION RATE 52.5 (>32); MAGNESIUM LEVEL 1.6 MG/DL (1.8-2.4); POTASSIUM SERUM 3.9 MEQ/L (3.5-5.1)
== END ==
LOC: M SFHCCLAY 09:04
PROVIDERS: ATTEND Family Medicine
DX: K29.50 Unspecified chronic gastritis without bleeding (principal); E83.42 Hypomagnesemia

== ENCOUNTER → 2022-04-26 | Outpatient (REF) | payer MEDICARE ==
[2022-04-26 12:23] LABS: CALCIUM LEVEL 9.1 MG/DL (8.8-10.2); CREATININE FOR GFR 1.06 MG/DL (0.55-1.30); MAGNESIUM LEVEL 1.7 MG/DL (1.8-2.4); POTASSIUM SERUM 3.8 MEQ/L (3.5-5.1)
== END ==
LOC: M SFHCCLAY 08:59
PROVIDERS: ATTEND Family Medicine
DX: M15.0 Primary generalized (osteo)arthritis (principal); E83.42 Hypomagnesemia